=== PATIENT | female | born 1935 | race Caucasian/White ===

== ENCOUNTER 2018-12-17 12:11 | Inpatient (IN) | payer MEDICARE, OTHER ==
[~2018-12-17] VITALS: Ht 160 cm; Wt 63.0 kg
[~2018-12-17 12:11] MED LIST: AMLODIPINE BESYL5 MG PO; ARICEPT 5 MG TAB5 MG; ASPIR 8181 MG PO; ASPIRIN325 PO; BENICAR40 MG; BENICAR40 MG PO; CENTRUM SILVER1 EAC4 PO; D3 DOTS2000 UNIT PO; ENOXAPARIN40 MG/0.1 SUBQ; EVISTA PO; FISH OIL 500 M1 EAC1 PO; FOLIC ACID0.4 MG PO; HYDROCODONE-AP1 EAC6 PO; LATANOPROST 0.2.5 ML OP; MESTINON60 MG PO; METOPROLOL SUCC25 M1 PO; NORCO 5-325 TA1 EACH PO; PREDNISONE 10 M10 MG PO; PRESERVISION A1 EAC2 PO; PROLIA60 MG/1 ML SQ; SUPER B COMPLE150 MG PO; SYNTHROID75 MCG PO; TYLENOL325 MG PO
[2018-12-17 12:33] VITALS: BP 140/78
[2018-12-17] MEDS ORDERED: ARICEPT10 M1 PO (12:37)
[2018-12-17] MEDS ORDERED: PROLIA60 MG/1 ML SUBQ (12:37)
[2018-12-17] MEDS ORDERED: XALATAN2.5 M1 OPHTHALMIC (12:38)
[2018-12-17 14:10] LABS: URINE BILIRUBIN NEGATIVE (Negative); URINE BLOOD NEGATIVE (Negative); URINE CLARITY CLEAR; URINE COLOR YELLOW; URINE GLUCOSE-RANDOM NEGATIVE (Negative); URINE KETONES NEGATIVE (Negative); URINE LEUKOCYTES-REFLEX TRACE (Negative); URINE NITRITE-REFLEX NEGATIVE (Negative); URINE PROTEIN NEGATIVE (Negative); URINE SPECIFIC GRAVITY 1.025 (1.005-1.030); URINE UROBILINOGEN 0.2 E.U./dl (0.2-1.0)
[2018-12-17 14:14] LABS: ABSOLUTE BASOPHILS 0.1 thou/uL (0.0-0.2); ABSOLUTE EOSINOPHILS 0.2 thou/uL (0.0-0.7); ABSOLUTE LYMPHOCYTES 2.1 thou/uL (0.8-5.3); ABSOLUTE MONOCYTES 0.9 thou/uL (0.0-1.2); BASOPHILS 0.6 %; EOSINOPHILS 1.5 %; HEMATOCRIT 42.6 % (37.0-47.0); HEMOGLOBIN 14.2 gm/dL (12.0-15.0); LYMPHOCYTES 16.9 %; MCH 29.9 pg (26.0-34.0); MCHC 33.2 g/dL (28.0-37.0); MCV 90.2 fL (80.0-100.0); MONOCYTES 7.1 %; MPV 8.5 fl. (7.2-11.1); NUCLEATED RBCS 0 /100WBC; PLATELET COUNT* 294 thou/uL (150-400); POLYS 73.9 %; RBC 4.73 mil/uL (4.20-5.00); RDW-CV 15.3 % (10.5-14.5); WBC 12.2 thou/uL (4.0-11.0)
[2018-12-17 14:19] LABS: SQUAMOUS 0-3 Few /LPF (0-3); URINE WBC-REFLEX 0-5 Rare /HPF (0-5)
[2018-12-17 14:20] LABS: APTT 24.3 Seconds (25.0-31.3); CALCIUM 9.9 mg/dL (8.5-10.1); CREATININE 1.2 mg/dL (0.6-1.3); POTASSIUM 4.6 mmol/L (3.5-5.1); PROTIME 9.8 Seconds (9.20-11.50)
[2018-12-17 14:20] LABS: BACTERIA-REFLEX 1-9 Few /HPF (None Seen); CASTS None Seen /LPF (None Seen); CRYSTALS None Seen /LPF (None Seen); MUCUS None Seen strn/LPF (None Seen); URINE RBC 0-2 Rare /HPF (0-2)
[2018-12-17 14:24] LABS: ALBUMIN 4.1 g/dL (3.4-5.0); TOTAL BILIRUBIN 0.4 mg/dL (<0.1-1.0); TOTAL PROTEIN 7.7 g/dL (6.4-8.2)
--- NOTE | 2018-12-17 16:44 | EKG ---
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: TY : 1935 Requested By: Jake Rich Order Number: [id number] MD: Jaspreet Zavala Measurements Intervals [place] Rate: 79 P: 52 NH: 180 QRS: 12 QRSD: 90 T: 59 QT: 387 QTc: 444 Interpretive Statements Sinus rhythm Paired ventricular premature complexes Low voltage, precordial leads Abnormal R-wave progression, early transition Compared to ECG 06/07/2016 10:21:06 No significant changes Electronically Signed On 12-17-2018 16:44:34 CDT by Jaspreet Zavala [email or web address] <ELECTRONICALLY SIGNED> By: Jaspreet Zavala MD, FACC 12/17/18 1644 1242 1242 Jaspreet Zavala MD, [facility] /EPI
[2018-12-17 18:02] VITALS: BP 134/65
--- NOTE | 2018-12-17 18:15 | NUR ---
ER ADMIT TO 228 REPORT GIVEN PRIOR TO ARRIVAL PATIENT ORIENTED TO AND CALL LIGHT SON AT BEDSIDE PATIENT DENIES PAIN
[2018-12-17 18:20] VITALS: BP 147/42
[2018-12-17 20:00] VITALS: BP 136/46
[2018-12-17] MEDS ORDERED: BENICAR40 MG PO (20:04)
[2018-12-17] MEDS ORDERED: CLARITIN10 MG PO (20:05)
[2018-12-17] MEDS ORDERED: COMBIGAN EYE DR10 ML OPHTHALMIC (20:06)
[2018-12-18] VITALS: BP 104/30
[2018-12-18 04:00] VITALS: BP 98/55
--- NOTE | 2018-12-18 05:00 | NUR ---
PT ADMITTED TO FLOOR AT 1830, MONITOR PLACED, VS OBATAINED AND STABLE. MAINTAINING SATS ON RA. SON IS DPOA AND AT BEDSIDE. ALL ASSESSMENTS COMPLETED WITH PT AND SON D/T COGNITIVE DECLINE. NO C/O PAIN OR DISCOMFORT NOTED, ALL NEEDS HAVE BEEN MET AT THIS TIME, PT CURRENTLY IN BED WITH CALL LIGHT WITHIN REACH.
[2018-12-18 08:00] VITALS: BP 128/56
[2018-12-18 13:38] VITALS: BP 120/39
--- NOTE | 2018-12-18 14:23 | NUR ---
MET WITH PT AND BRIAN/TYREE TO DISCUSS HOME SITUATION/DC PLANNING. PT LIVES AT THE ASSISTED LIVING AT [facility]. PLAN IS FOR HER TO RETURN THERE AT OK. SHE HAS NOT BEEN TO SNF THERE IN PAST BUT TYREE IS OPEN TO THAT IF NEEDED. PT DOES HAVE THERAPY ORDERED. PT IS CONFUSED, THOUGHT SHE WAS STILL LIVING WITH HER SPOUSE WHO IS . PT USES WALKER, IS ABLE TO AMBULATE AND DRESS HERSELF. NEEDS ASSIST WITH SHOWER. DOES HAVE MEMORY ISSUES PER TYREE. COPY OF DPOA ON CHART. CALLED AND UPDATED LETHA/CONCEPCIÓN AND WILL FOLLOW
[2018-12-18 16:00] VITALS: BP 120/86; BP 144/54; BP 146/48
--- NOTE | 2018-12-18 16:46 | 2DMMODE ---
[place] [address] 2 D/M-MODE ECHOCARDIOGRAM Name: DESTINY COLBY Room: [address] ADM IN [facility]#: [id number] Admission: 12/17/18 Attend Phys: Cielo Keating Discharge: Date of : 35 Date of Service: 12/18/18 1646 Report #: [id number] THIS REPORT FOR: //name// APPROVED REPORT Study performed: 12/18/2018 14:46:32 EXAM: Comprehensive 2D, Doppler, and color-flow Echocardiogram Patient Location: In-Patient Room #: [facility] Status: routine BSA: 1.65 HR: 69 bpm BP: 120/39 mmHg Rhythm: NSR Other Information Study Quality: Good Indications Dyspnea Syncope 2D Dimensions IVSd: 10.62 (7-11mm) LVOT Diam: 21.65 (18-24mm) LVDd: 41.17 mm PWd: 10.40 (7-11mm) Ascending Ao: 30.29 (22-36mm) LVDs: 31.01 (25-40mm) Aortic Root: 28.88 mm Volumes Left Atrial Volume (Systole) LA ESV Index: 36.80 mL/m2 Aortic Valve AoV Peak Jasmeet.: 1.28 m/s AO Peak Gr.: 6.59 mmHg LVOT Max P.17 mmHg AO Mean Gr.: 3.45 mmHg LVOT Mean P.97 mmHg LVOT Max V: 1.02 m/s AO V2 VTI: 24.89 cm LVOT Mean V: 0.65 m/s HARPER (VTI): 3.22 cm2 LVOT V1 VTI: 21.76 cm Mitral Valve E/A Ratio: 1.20 MV Decel. Time: 169.90 [place] [address] 2 D/M-MODE ECHOCARDIOGRAM Name: DESTINY COLBY Room: [address] IN .R.#: [id number] Admission: 12/17/18 Attend Phys: Cielo Keating Discharge: Date of : 35 Date of Service: 12/18/18 1646 Report #: [id number] MV E Max Jasmeet.: 1.06 m/s MV PHT: 49.27 ms MVA (PHT): 4.47 cm2 TDI E/Lateral E': 8.83 E/Medial E': 13.25 Medial E' Jasmeet.: 0.08 m/s Lateral E' Jasmeet.: 0.12 m/s Pulmonary Valve PV Peak Jasmeet.: 0.76 m/s PV Peak Gr.: 2.33 mmHg Tricuspid Valve RAP Estimate: 5.00 mmHg TR Peak Gr.: 35.57 mmHg RVSP: 40.00 mmHg PA Pressure: 40.00 mmHg Left Ventricle The left ventricle is normal size. There is normal LV segmental wall motion. There is normal left ventricular wall thickness. Left ventricular systolic function is normal. LVEF is 55-60%. Transmitral Doppler flow pattern suggests impaired LV relaxation. Right Ventricle The right ventricle is normal size. The right ventricular systolic function is normal. Atria Left atrium is mildly dilated. Right atrium is mildly dilated. Aortic Valve Mild aortic valve sclerosis. No aortic regurgitation is present. There is no aortic valvular stenosis. Mitral Valve The mitral valve is normal in structure. Mild mitral regurgitation. No evidence of mitral valve stenosis. Tricuspid Valve The tricuspid valve is normal in structure. Mild tricuspid regurgitation. The RVSP is 45-50 mmHg. Pulmonic Valve The pulmonary valve is normal in structure. [place] [address] 2 D/M-MODE ECHOCARDIOGRAM Name: DESTINY COLBY Room: [address] IN [facility]#: [id number] Admission: 12/17/18 Attend Phys: Cielo Keating Discharge: Date of : 35 Date of Service: 12/18/18 1646 Report #: [id number] Great Vessels The aortic root is normal in size. IVC is normal in size and collapses >50% with inspiration. Pericardium There is no pericardial effusion. <Conclusion> The left ventricle is normal size. There is normal left ventricular wall thickness. Left ventricular systolic function is normal. LVEF is 55-60%. Transmitral Doppler flow pattern suggests impaired LV relaxation. Left atrium is mildly dilated. Right atrium is mildly dilated. Mild aortic valve sclerosis. There is no aortic valvular stenosis. Mild mitral regurgitation. Mild tricuspid regurgitation. The RVSP is 45-50 mmHg. <ELECTRONICALLY SIGNED> By: Merrick Escobedo MD, FACC 12/18/18 1646 45 45 Merrick Escobedo MD, FACC /INF
--- NOTE | 2018-12-18 17:49 | NUR ---
ASSUMED PT CARE REPORT RECEIVED FROM NURSE. PT IS AOX3 FORGETFUL. ON RA. VSS. IV FLUID INFUSING. IV ABX GIVEN. PT GOT MRI , EEG DONE PER NEURO. FALL PRECAUTION IN PLACE. PT REFUSED TO COOPORATE WITH FALL PRECAUTION RULES. KEEPS GETTING OUT OF BED. AND IS MORE CONFUSED. PT GOT AGITATED AROUND 1600. TRAZODONE GIVEN ONETIME PER DR ORDER.THEN ATIVAN ORDERED. WILL ADMINISTER. FALLP RECAUTION IN PLACE. CLOSE MONITORING IN PLACE. WILL CONTINUE TO MONITOR PT
--- NOTE | 2018-12-18 19:32 | NUR ---
PT HAD 2 TO 3 RUNS OF VTACH THIS AM . DR HANDLEY WAS NOTIFIED. CARDIAC SCRIPT PLACED IN CHART. US CAROTID, ECHO WAS ORDERED PER HOSPITALIST
[2018-12-18 20:00] VITALS: BP 123/48
[2018-12-19] VITALS (7 sets, daily range): BP systolic 119–156; BP diastolic 44–98
--- NOTE | 2018-12-19 05:49 | NUR ---
PT HAS INCREASED CONFUSION THIS HS SHIFT, IV REMOVED X2, IMPULSIVE BEHAVIOR GETTING UP OUT OF BED WITHOUT USING CALL LIGHT. FAMILY HAS REQUESTED THAT ATIVAN IS NO LONGER USED FOR THIS PT. CURRENTLY IN BED WITH BED ALARM ON, AND CALL LIGHT WITHIN REACH.
--- NOTE | 2018-12-19 14:04 | NUR ---
CONTINUE TO FOLLOW, MET WITH PT AND GRANDDTR, NOT READY FOR DC TODAY. IF PT ABLE TO DC OVER WEEKEND, WILL NEED TO CONTACT [facility] TO RETURN WELL FAMILY. [facility]/JOON [phone] SHE WILL BE ABLE TO ASSIST WITH PT'S RETURN. WILL NEED CHART COPY AND REPORT CALLED ALSO. JUANITO COLBY/SON AND DIL [facility] [phone] OR [phone]
--- NOTE | 2018-12-19 19:00 | NUR ---
RECEIVED REPORT FROM RHONDA MEDINA. ASSUMED CARE OF PT AROUND 0730. PT ALERT, ORIENTED TO SELF AND "[place]". PLEASANTLY CONFUSED. VSS. CHECKER DUMP GROUNDS IN PLACE TRACING SR WITH PVCS AND BIGEMENY THIS SHIFT. PT HAS DENIED PAIN TODAY. PT TOLERATING DIET. UP WITH SBA AND WALKER TO THE BATHROOM TO VOID FREQUENTLY. SMALL BM THIS AM, LOOSE. FAMILY AT BEDSIDE THIS EVENING - RECEIVED UPDATE FROM NEUROLOGIST DR CARBALLO. ORTHOSTATICS CHARTED. ECHO COMPLETED THIS SHIFT, HAVE NOT SEEN REPORT. PT WITH NO COMPLAINTS THIS SHIFT. PT CURRENTLY RESTING IN BED. CALL LIGHT IS WTIHIN REACH. HOURLY ROUNDING PERFROMED. FALL PRECAUTIONS IN PLACE.
[2018-12-20] VITALS (10 sets, daily range): BP systolic 130–188; BP diastolic 63–89
[2018-12-20 04:36] LABS: HEMATOCRIT 33.9 % (37.0-47.0); MCH 29.8 pg (26.0-34.0); MCHC 32.6 g/dL (28.0-37.0); MCV 91.4 fL (80.0-100.0); MPV 8.6 fl. (7.2-11.1); RBC 3.71 mil/uL (4.20-5.00); WBC 7.2 thou/uL (4.0-11.0)
[2018-12-20 04:53] LABS: HEMOGLOBIN 11.1 gm/dL (12.0-15.0)
[2018-12-20 05:02] LABS: ALBUMIN 2.8 g/dL (3.4-5.0); CALCIUM 8.2 mg/dL (8.5-10.1); CREATININE 0.9 mg/dL (0.6-1.3); POTASSIUM 4.2 mmol/L (3.5-5.1); TOTAL BILIRUBIN 0.2 mg/dL (<0.1-1.0); TOTAL PROTEIN 5.6 g/dL (6.4-8.2)
--- NOTE | 2018-12-20 06:56 | NUR ---
PT CARE ASSUMED AT 1930. SAT MAINTAINED IN RA. PT IS CONFUSED AND IMPULSIVE, GETS OFF THE BED ALARM, NEEDS REINFORCEMENT. DENIES PAIN AND SOB. CALL LIGHT WITHIN REACH AND BED IN LOW POSITION. HOURLY ROUNDING DONE FOR PT SAFETY.
--- NOTE | 2018-12-20 11:32 | NUR ---
ASSUMED CARE OF PATIENT THIS AM AT 0730. PATIENT IS ALERT AND ORIENTED X 4. SHE DENIES PAIN AND DISCOMFORT. PATIENT HAS BEEN UP TO THE BATHROOM FREQUENTLY TODAY. SHE HAS FORGOTTEN TO USE THE CALL LIGHT REQUESTED. BED ALARM IS ON. TELE SHOWS SR TO ST WITH PVCS, COUPLETS AND BIGEMINY. IV ANTIBIOTICS INFUSED. PATIENT ASSISTED WITH ADLS THROUGHOUT THE DAY. NO FALLS OR INJURY. WILL CONTINUE TO MONITOR.
[2018-12-21 00:47] VITALS: BP 159/82
--- NOTE | 2018-12-21 03:12 | NUR ---
PT CARE ASSUMED AT 1930. SAT MAINTAINED IN RA. PT IS IMPULSIVE AND CONFUSED. CALL LIGHT WITHIN REACH AND BED IN LOW POSITION. HOURLY ROUNDING DONE FOR PT SAFETY. REPORT GIVEN TO ADAM KAUR.
[2018-12-21 04:00] VITALS: BP 140/66; BP 157/89; BP 79/61
[2018-12-21 04:22] LABS: HEMATOCRIT 35.5 % (37.0-47.0); HEMOGLOBIN 11.8 gm/dL (12.0-15.0); MCH 30.2 pg (26.0-34.0); MCHC 33.3 g/dL (28.0-37.0); MCV 90.8 fL (80.0-100.0); MPV 8.5 fl. (7.2-11.1); RBC 3.91 mil/uL (4.20-5.00); RDW-CV 15.3 % (10.5-14.5); WBC 9.6 thou/uL (4.0-11.0)
[2018-12-21 04:42] LABS: CALCIUM 8.7 mg/dL (8.5-10.1); CREATININE 0.9 mg/dL (0.6-1.3); MAGNESIUM 1.7 mg/dL (1.8-2.4); POTASSIUM 4.1 mmol/L (3.5-5.1)
--- NOTE | 2018-12-21 07:51 | NUR ---
RECEIVED REPORT AND ASSUMED CARE AT 0130. VSS. CARDIAC MONITORING IN PLACE. PT UP WITH ASSIST, ON RA. HOURLY ROUNDING COMPLETED AND ALL NEEDS MET. NO ACUTE CHANGES
[2018-12-21 08:00] VITALS: BP 143/81
--- NOTE | 2018-12-21 11:12 | NUR ---
ASSUMED CARE OF PATIENT THIS AM AT 0730. PATIENT IS ALERT, CONFUSED ORIENTED TO PERSON. TELE SHOWS SR TO ST WITH PVCS. PVCS DECREASED FROM YESTERDAY. PATIENT DENIES PAIN AND SOA. CARDIOLOGY IN TO ROUND. THE DOCTOR SPOKE WITH FAMILY MEMBER REGARDING TX PLAN. IV ANTIBIOTICS CONTINUED. PATIENT ASSISTED UP TO THE CHAIR. URINARY FREQUENCY DECREASED TODAY. WILL CONTINUE TO MONITOR PATIENT SAFETY.
[2018-12-21 11:30] VITALS: BP 136/76
[2018-12-21 16:00] VITALS: BP 141/83
[2018-12-21 20:00] VITALS: BP 123/52
[2018-12-22] VITALS (7 sets, daily range): BP systolic 94–168; BP diastolic 47–90
--- NOTE | 2018-12-22 05:02 | NUR ---
ASSUMED CARE OF PT AFTER REPORT AT 1930. PT A&OX2. ONLY ORIENTED TO SELF & PLACE. FORGETFUL. IMPULSIVE. PT ON RA. PT TRACING SR/ST/PVC/BIGEMINY ON TELE. PT UPSTANDBY TO RESTROOM. PT DENIES ANY PAIN OR SOA. PT ABLE TO SLEEP WELL ON BED. CALL LIGHT WITHIN REACH.
--- NOTE | 2018-12-22 13:51 | NUR ---
CONTINUE TO FOLLOW, MET WITH PT AND THEN SPOKE WITH FIDELINA OVER THE PHONE. PER DR MARQUEZ, CONCERNED PT MAY NEED SNF. CALLED AND FAXED CLINICAL UPDATE TO PABLO/CONCEPCIÓN. MICHAEL/CONCEPCIÓN TO COME OVER THE EVAL PT RE: RETURN TO HER AN APT. FIDELINA STATED THAT SHE AND PT'S SON/ROMARIO PREFER THAT PT RETURN TO HER APT ESPECIALLY WITH HER DEMENTIA. PREFER SHE RETURN TO WHERE SHE IS FAMILIAR. ANTICIPATED DC TOMORROW. WILL FOLLOW AND AWAIT Deo RECOMMENDATION AND F/U WITH
--- NOTE | 2018-12-22 18:38 | NUR ---
PT IS A&Ox SELF. VITALS STABLE. SR TO ST ON MONITOR. ON RA. UP STAND BY WITH WALKER. PT IS IMPULSIVE AND DOES NOT FOLLOW FALL PRECAUTIONS. FALL EDUCATION AND CALL LIGHT EDUCATION GIVEN TO PT MULTIPLE TIMES. BED AND CHAIR ALARMS ON. PT HAS BEEN KNOWN TO FIND OUT HOW TO TURN ALARMS OFF HERSELF BEFORE GETTING UP. POSSBLE DC TOMORROW BACK TO [facility]. FALL PRECAUTIONS IN PLACE. CALL LIGHT WITHIN REACH. WILL CONTINUE TO MONITOR.
[2018-12-23] VITALS: BP 149/56
[2018-12-23 04:00] VITALS: BP 98/68
--- NOTE | 2018-12-23 06:55 | NUR ---
PT SLEPT MOST OF SHIFT. ASSESSMENT DOCUMENTED. MEDS GIVEN PER E-APR. IV PATENT. NO REPORTS OF PAIN. FALL PRECAUTIONS IN PLACE. WILL CONTINUE WITH PLAN OF CARE.
[2018-12-23 08:00] VITALS: BP 157/63
[2018-12-23] MEDS ORDERED: ADULT LOW DOSE81 MG PO (11:35)
[2018-12-23] MEDS ORDERED: CIPRO500 M1 PO (11:35)
[2018-12-23] MEDS ORDERED: NAMENDA 5 MG TAB5 M1 PO (11:36)
--- NOTE | 2018-12-23 11:36 | NUR ---
ORDERS FOR PT TO RETURN TO HER PRISON APT AT [facility]. CALLED CONCE[facility]N/JOON, THEY WILL ACCEPT BACK TODAY TO AN. CHART COPIED. ORDERS FAXED TO [facility]. CALL TO BRIAN/TYREE, SHE WILL PROVIDE TRANSPORT AROUND 2PM FOR PT. RN HAS NUMBER TO CALL REPORT. PT AWARE
[2018-12-23 11:59] VITALS: BP 116/64
[2018-12-23 13:15] VITALS: BP 116/64
[2018-12-23] MEDS ORDERED: BENICAR40 MG PO (13:15)
--- NOTE | 2018-12-23 13:24 | NUR ---
RECEIVED REPORT FROM AURY MEDINA. ASSUMED CARE OF PT AROUND 0730. PT ALERT, ORIENTED TO SELF. VSS. FILLER SHAKER IN PLACE TRACING SR WITH FREQUENT PVC'S. AM ASSESSMENT AND VITALS COMPLETED CHARTED. MEDS PER EMAR. PT UP WITH SBA AND WALKER TO THE BATHROOM TO VOID. PT IMPULSIVE AT TIMES AND FORGETS TO USE CALL LIGHT. FALL PRECAUTIONS IN PLACE. BED ALARM ON. PT HAS DENIED PAIN THIS SHIFT. PT TO GO BACK TO [facility] THIS AFTERNOON. PT CURRENTLY RESTING IN BED. CALL LIGHT IS WITHIN REACH. HOURLY ROUNDING PERFORMED. REPORT GIVEN TO DIOGENES MEDINA.
[2018-12-23 13:25] VITALS: BP 116/64
--- NOTE | 2018-12-23 14:39 | NUR ---
GAVE DISCHARGE PAPERWORK TO [facility], NO COMMENTS, QUESTIONS, OR CONCERNS NOTED. WHEELED DOWN TO [facility] CAR BY VOLUNTEER AT 1440. SCRIPTS GIVEN TO DAUGHTER AND A COPY OF DISCHARGE PAPERWORK ALSO GIVEN. IV AND HEART MONITOR REMOVED. REPORT CALLED TO JOON AT [facility].
--- NOTE | 2018-12-26 14:24 | CON ---
[address] [address] CONSULTATION Name: PUNEET COLBYN Emily Room: [address] IN M.R.#: [id number] Admission: 12/17/18 Attend Phys: Adriana Mcmahan Discharge: 12/23/18 Date of : 35 Report #: [id number] THIS REPORT FOR: //name// CC: Ashley Keating DATE OF SERVICE: 12/18/2018 HISTORY OF PRESENT ILLNESS: This is an 83-year-old female patient whom I have seen in the past. The patient has pretty significant memory deficits and she is not able to provide any good history. I talked to the patient's son and he indicated that this patient's memory has deteriorated in the last 30 days or so. The deterioration was spontaneous and without any trauma or any infection. She lives in [place]. Her myasthenia is reasonably under control. REVIEW OF SYSTEMS: Indicate that this patient has a history of dementia. She has a history of myasthenia gravis. She had an episode of near syncope. Her heart is showing some irregularity as I understand. When I saw her the first time she was pretty significantly weak, but I do not think she is that weak now. She is on the medication for dementia as well as for myasthenia gravis. She also has a history of tonsillectomy, hysterectomy, appendectomy, bladder repair, hypertension, hypothyroidism and knee replacement. History is poor, but 14-point review of systems indicates no additional eye, ENT, cardiac, respiratory, GI, , musculoskeletal, constitutional, dermatological, hematological, psychiatric, throat, allergic symptom associated with present symptomatology. PAST MEDICAL HISTORY: Positive for myasthenia gravis and dementia. FAMILY HISTORY: Negative for any early age stroke. SOCIAL HISTORY: She does not drink or smoke. PHYSICAL EXAMINATION: Indicate she is alert. She does not know what month it is. She does not know what day it is. She does not know what hospital she is in, and why she came in. Her speech looks intact. Cranial nerve examination does indicate some ptosis. Otherwise, it was unremarkable. Strength, sensation, reflexes and tones were symmetrical. Pulses appeared to be palpable. She has no edema, cyanosis or jaundice. Heart does appear to be somewhat irregular. No respiratory difficulty or rhonchi was noticed. She is moderately built individual whose hearing and vision looks adequate. No facial deformity was noticed. No thyroid mass was detected. The blood pressure is 128/56, respirations 16, pulse is 74 and temperature is 97.6. LABORATORY DATA: Indicated white count of 12.2 and normal sodium. Urine [place] [address] CONSULTATION Name: PUNEET COLBYN Emily Room: [address] IN M.R.#: [id number] Admission: 12/17/18 Attend Phys: Adriana Mcmahan Discharge: 12/23/18 Date of : 35 Report #: [id number] IMPRESSION: 1. Advanced dementia. 2. Myasthenia gravis, which appeared to be stable. 3. Syncope, which need further workup, both cardiac as well as neurological. RECOMMENDATIONS: 1. From neurological perspective, I will suggest getting an MRI and an EEG done. 2. Systemic especially cardiac workup to look for any cause for syncope. 3. I repeated the TSH because one time it was abnormal. 4. I do not believe we need to change much for myasthenia gravis in this patient. My partners will be following up this patient from tomorrow. <ELECTRONICALLY SIGNED> By: Alistair Davidson MD 12/26/18 1424 0922 [id number] Davidson MD /nt
--- NOTE | 2018-12-26 14:24 | EEG ---
[address] [address] EEG STUDY REPORT Name: DESTINY COLBY Room: [address] IN M.R.#: [id number] Admission: 12/17/18 Attend Phys: Adriana Mcmahan Discharge: 12/23/18 Date of : 35 Report #: [id number] THIS REPORT FOR: //name// CC: Ashley Keating DATE OF SERVICE: 12/18/2018 This patient is being evaluated for an episode of syncope. EEG was done by placing the electrode by standard 10/20 system of electrode placement. Both referential and sequential montages were used for recording. Background activity in this patient's EEG is about 8-9 Hz and 30 microvolt. The patient became drowsy and that is associated with bilateral slowing. Photic stimulation was unremarkable. Throughout the record, no active epileptiform activity was noticed. IMPRESSION: The EEG is intermixed with moderate amount of slowing, which is a nonspecific finding, which can occur with dementia, encephalopathy, effect of psychotropic medication, etc. Clinical correlation is recommended. <ELECTRONICALLY SIGNED> By: Alistair Davidson MD 12/26/18 1424 1550 [id number] Davidson MD /nt
--- NOTE | 2018-12-27 11:55 | CON ---
[address] [address] CONSULTATION Name: DESTINY COLBY Room: [address] IN .R.#: [id number] Admission: 12/17/18 Attend Phys: Adriana Mcmahan Discharge: 12/23/18 Date of : 35 Report #: [id number] THIS REPORT FOR: //name// CC: Ashley Rasheeda Keating DATE OF SERVICE: 12/21/2018 CARDIOLOGY CONSULTATION HISTORY OF PRESENT ILLNESS: The patient is a pleasant 83-year-old female who lives at [facility]. She was admitted with urinary tract infection, hypotension and alteration in consciousness. Since admission, she has been noted to have frequent PVCs including frequent episodes of bigeminy and one 4-beat run of nonsustained ventricular tachycardia. She also had a markedly elevated NT-BNP of 5567 on 12/20/2018. The patient denies palpitations and there has been no recurrent lightheadedness since admission. She denies chest discomfort. The patient has no history of prior myocardial infarction. She is compliant with cardiac medicines including olmesartan and fish oil. She is on a number of noncardiac medications. PAST MEDICAL HISTORY: Remarkable for prior cigarette smoking and antecedent hypertension. Chronic medical problems include myasthenia gravis, dementia, prior knee replacements. FAMILY HISTORY: Negative for premature coronary artery disease. SOCIAL HISTORY: Reveals the patient to be neither a smoker nor drinker. She lives at [facility] at this point. REVIEW OF SYSTEMS: Remarkable for the following: CENTRAL NERVOUS SYSTEM: She notes chronic weakness. CARDIOVASCULAR: She had an episode of passing out prior to admission was noted to be hypotensive at [facility] associated with her acute urinary tract infection. ENDOCRINE: There is a history of thyroid problems. ALLERGIC AND IMMUNOLOGIC: She notes SEASONAL ALLERGIES. PHYSICAL EXAMINATION: [place] [address] CONSULTATION Name: DESTINY COLBY Room: [address]#: [id number] Admission: 12/17/18 Attend Phys: Adriana Mcmahan Discharge: 12/23/18 Date of : 35 Report #: [id number] GENERAL: Reveals a frail-appearing elderly female in no acute distress. VITAL SIGNS: Blood pressure is 140/65, pulse rate is 84, respirations are 18 per minute. NECK: Jugular venous pressure is normal. CHEST: Clear. CARDIAC: Reveals normal first and second heart sounds without murmurs or gallops. ABDOMEN: Soft. EXTREMITIES: Without edema. Rhythm strips were reviewed and they reveal frequent PVCs with occasional couplets, periods of bigeminy and one 4-beat run of nonsustained ventricular tachycardia. IMPRESSION: 1. Frequent ventricular ectopy with short run of nonsustained ventricular tachycardia, which remains asymptomatic. 2. Increased NT-BNP. 3. History of hypertension. 4. Episode of loss of consciousness associated with hypotension and acute urinary tract infection. RECOMMENDATIONS: 1. Holter monitoring for 48 hours. 2. I would recommend echocardiogram regarding structural heart disease. 3. Would not recommend antiarrhythmic pharmacotherapy on the basis of currently available data. This has been discussed with the patient and family. <ELECTRONICALLY SIGNED> By: Jaspreet Zavala MD, FACC 12/27/18 1155 1043 [id number] Zavala MD, FACC /nt
== END 2018-12-23 14:40 | DRG 312 ==
LOC: M.ERS 12:11 → M.2W 16:03 → M.TBA-ER 16:03 → M.2W 18:08
PROVIDERS: Family Medicine; ADMIT Internal Medicine
DX: I95.1 Orthostatic hypotension (principal); N39.0 Urinary tract infection, site not specified; I47.2 Ventricular tachycardia; G93.40 Encephalopathy, unspecified; I10 Essential (primary) hypertension; F03.90 Unspecified dementia, unspecified severity, without behavioral disturbance, psychotic disturbance, mood disturbance, and anxiety; E03.9 Hypothyroidism, unspecified; M81.0 Age-related osteoporosis without current pathological fracture; Z96.653 Presence of artificial knee joint, bilateral; G70.00 Myasthenia gravis without (acute) exacerbation; I34.0 Nonrheumatic mitral (valve) insufficiency; I49.3 Ventricular premature depolarization; E78.5 Hyperlipidemia, unspecified; Z79.82 Long term (current) use of aspirin; Z79.899 Other long term (current) drug therapy; Z90.710 Acquired absence of both cervix and uterus; Z90.49 Acquired absence of other specified parts of digestive tract; Z87.891 Personal history of nicotine dependence; Z82.49 Family history of ischemic heart disease and other diseases of the circulatory system

== ENCOUNTER 2019-08-29 17:19 | Inpatient (IN) | payer MEDICARE, OTHER ==
[~2019-08-29] VITALS: Ht 170.2 cm; Wt 61.2 kg
[~2019-08-29 17:19] MED LIST changes: +ADULT LOW DOSE81 MG PO; +ARICEPT10 M1 PO; +CIPRO500 M1 PO; +CLARITIN10 MG PO; +COMBIGAN EYE DR10 ML OPHTHALMIC; +NAMENDA 5 MG TAB5 M1 PO; +PROLIA60 MG/1 ML SUBQ; +XALATAN2.5 M1 OPHTHALMIC
[2019-08-29 17:21] VITALS: BP 139/89
[2019-08-29 18:05] LABS: HEMATOCRIT 38.9 % (37.0-47.0); HEMOGLOBIN 12.9 gm/dL (12.0-15.0); MCH 30.1 pg (26.0-34.0); MCHC 33.3 g/dL (28.0-37.0); MCV 90.4 fL (80.0-100.0); MPV 8.4 fl. (7.2-11.1); NUCLEATED RBCS 0 /100WBC; PLATELET COUNT* 263 thou/uL (150-400); RDW-CV 15.2 % (10.5-14.5)
[2019-08-29 18:15] LABS: CALCIUM 9.8 mg/dL (8.5-10.1); CREATININE 1.2 mg/dL (0.6-1.3); POTASSIUM 3.8 mmol/L (3.5-5.1)
[2019-08-29 18:17] LABS: APTT 22.9 Seconds (25.0-31.3); PROTIME 10.2 Seconds (9.20-11.50)
[2019-08-29 18:26] LABS: ALBUMIN 3.7 g/dL (3.4-5.0); TOTAL BILIRUBIN 0.5 mg/dL (<0.1-1.0); TOTAL PROTEIN 7.1 g/dL (6.4-8.2)
[2019-08-29 18:37] LABS: ABSOLUTE LYMPHOCYTES 0.4 thou/uL (0.8-5.3); ABSOLUTE MONOCYTES 0.4 thou/uL (0.0-1.2); ABSOLUTE NEUTROPHILS 12.2 thou/uL (1.6-8.1); ANISOCYTOSIS Occasional; PLATELET ESTIMATE ADEQUATE
[2019-08-29 19:20] LABS: URINE BILIRUBIN NEGATIVE (Negative); URINE BLOOD NEGATIVE (Negative); URINE CLARITY SL CLOUDY; URINE COLOR YELLOW; URINE GLUCOSE-RANDOM NEGATIVE (Negative); URINE KETONES NEGATIVE (Negative); URINE LEUKOCYTES-REFLEX 1+ (Negative); URINE NITRITE-REFLEX NEGATIVE (Negative); URINE PROTEIN TRACE (Negative); URINE UROBILINOGEN 0.2 E.U./dl (0.2-1.0)
[2019-08-29 19:27] LABS: BACTERIA-REFLEX >30 Many /HPF (None Seen); CRYSTALS None Seen /LPF (None Seen); HYALINE CASTS 0-3 Few /LPF (None Seen); MUCUS 4-6 Moderate strn/LPF (None Seen); SQUAMOUS 4-10 Moderate /LPF (0-3); URINE RBC 0-2 Rare /HPF (0-2); URINE WBC-REFLEX 6-15 Few /HPF (0-5)
[2019-08-29 19:42] VITALS: BP 136/74
[2019-08-29 20:30] VITALS: BP 141/71
[2019-08-29 23:58] VITALS: BP 138/50
[2019-08-30 04:00] VITALS: BP 136/71
--- NOTE | 2019-08-30 06:01 | NUR ---
PT RECIEVED FROM ED IN ROOM 214. PT IS CONNFUSED, AGITATED. TRYING TO PULL THE IV OUT, GETTING OFF THE BED ALARM FREQUENTLY. PHYSICIAN INFORMED AND MEDICATION GIVEN PER EMAR. DENIES PAIN AND SOB. CALL LIGHT WITHIN REACH AND BED IN LOW POSITION. HOURLY ROUNDING DONE FOR PT SAFETY.
[2019-08-30 07:53] VITALS: BP 116/62
[2019-08-30 13:08] LABS: URINE BILIRUBIN NEGATIVE (Negative); URINE BLOOD NEGATIVE (Negative); URINE CLARITY CLEAR; URINE COLOR YELLOW; URINE GLUCOSE-RANDOM NEGATIVE (Negative); URINE KETONES NEGATIVE (Negative); URINE LEUKOCYTES-REFLEX NEGATIVE (Negative); URINE NITRITE-REFLEX NEGATIVE (Negative); URINE PROTEIN TRACE (Negative); URINE SPECIFIC GRAVITY 1.015 (1.005-1.030); URINE UROBILINOGEN 0.2 E.U./dl (0.2-1.0)
[2019-08-30 15:07] VITALS: BP 119/43
[2019-08-30 15:09] VITALS: BP 128/49
[2019-08-30 15:11] VITALS: BP 135/75
--- NOTE | 2019-08-30 17:49 | NUR ---
PT ST ON MONITOR. DR ROBERTS NOTIFIED. EKG OBTAINED PER ORDER. SEE CHART. PT VERY CONFUSED AND FORGETFUL. REMOVES FOUNDER CEO & PRESIDENT FREQUENTLY. NEW IV ACCESS STARTED AFTER PT REMOVED PREVIOUS ONE. REFUSED 1700 PO MEDICATION DISPITE MANY ATTEMPTS TO GET HER TO DO SO. FALL PRECAUTIONS IN PLACE INCLUDING BED ALARM. SLOW TO PROGRESS TOWARDS GOALS.
--- NOTE | 2019-08-30 18:37 | NUR ---
PT INCONT OF URINE AT TIMES.
[2019-08-30 20:20] VITALS: BP 128/59
[2019-08-31] VITALS: BP 154/54
[2019-08-31 04:00] VITALS: BP 156/78
--- NOTE | 2019-08-31 07:06 | NUR ---
PT CARE ASSUMED AT 1930. SAT MAINTAINED IN RA. ALERT AND ORIENTED X 2. DENIES SOB. PT IS CONFUSED. INCONTINENT OF BLADDER. CALL LIGHT WITHIN REACH AND BED IN LOW POSITION. HOURLY ROUNDING DONE FOR PT SAFETY.
[2019-08-31 07:40] VITALS: BP 146/71
[2019-08-31 11:19] LABS: HEMATOCRIT 33.5 % (37.0-47.0); HEMOGLOBIN 11.1 gm/dL (12.0-15.0); MCH 30.2 pg (26.0-34.0); MCV 91.4 fL (80.0-100.0); MPV 8.5 fl. (7.2-11.1); RBC 3.67 mil/uL (4.20-5.00); RDW-CV 15.9 % (10.5-14.5); WBC 12.4 thou/uL (4.0-11.0)
[2019-08-31 11:32] LABS: ALBUMIN 2.5 g/dL (3.4-5.0); CALCIUM 8.3 mg/dL (8.5-10.1); MAGNESIUM 2.5 mg/dL (1.8-2.4); PHOSPHORUS* 2.7 mg/dL (2.5-4.9); POTASSIUM 3.6 mmol/L (3.5-5.1)
[2019-08-31 11:53] VITALS: BP 123/46
--- NOTE | 2019-08-31 14:52 | 2DMMODE ---
[place] [address] 2 D/M-MODE ECHOCARDIOGRAM Name: DESTINY COLBY Room: [address] IN [facility]#: [id number] Admission: 08/31/19 Attend Phys: Francisco Dockery Discharge: Date of : 35 Date of Service: 08/31/19 1451 Report #: [id number] THIS REPORT FOR: cc: Ashlye Vanessa MD, Katrina MD Holkins, John M. MD [facility] ~ APPROVED REPORT Study performed: 08/31/2019 11:15:21 EXAM: Comprehensive 2D, Doppler, and color-flow Echocardiogram Patient Location: In-Patient Room #: [facility] Status: routine BSA: 1.98 HR: 97 bpm BP: 156/78 mmHg Rhythm: NSR Other Information Study Quality: Good Indications Dyspnea 2D Dimensions IVSd: 8.73 (7-11mm) LVOT Diam: 20.68 (18-24mm) LVDd: 37.64 mm PWd: 8.26 (7-11mm) Ascending Ao: 30.67 (22-36mm) LVDs: 28.90 (25-40mm) Aortic Root: 28.79 mm Volumes Left Atrial Volume (Systole) LA ESV Index: 22.40 mL/m2 Aortic Valve AoV Peak Jasmeet.: 1.40 m/s AO Peak Gr.: 7.80 mmHg LVOT Max P.37 mmHg AO Mean Gr.: 4.59 mmHg LVOT Mean P.28 mmHg LVOT Max V: 0.77 m/s AO V2 VTI: 22.89 cm LVOT Mean V: 0.53 m/s HARPER (VTI): 1.89 cm2 LVOT V1 VTI: 12.91 [place] [address] 2 D/M-MODE ECHOCARDIOGRAM Name: DESTINY COLBY Room: [address] IN ..#: [id number] Admission: 08/31/19 Attend Phys: Francisco Dockery Discharge: Date of : 35 Date of Service: 08/31/19 1451 Report #: [id number] Mitral Valve E/A Ratio: 0.63 MV Decel. Time: 190.62 ms MV E Max Jasmeet.: 0.54 m/s MV PHT: 55.28 ms MVA (PHT): 3.98 cm2 TDI E/Lateral E': 6.75 E/Medial E': 7.71 Medial E' Jasmeet.: 0.07 m/s Lateral E' Jasmeet.: 0.08 m/s Tricuspid Valve RAP Estimate: 5.00 mmHg TR Peak Gr.: 17.88 mmHg RVSP: 23.00 mmHg PA Pressure: 23.00 mmHg Left Ventricle The left ventricle is normal size. There is normal LV segmental wall motion. There is normal left ventricular wall thickness. Left ventricular systolic function is normal. The left ventricular ejection fraction is within the normal range. LVEF is 55%. Grade I - abnormal relaxation pattern. Right Ventricle The right ventricle is normal size. The right ventricular systolic function is normal. Atria The left atrium size is normal. The right atrium size is normal. Aortic Valve Mild aortic valve sclerosis. No aortic regurgitation is present. There is no aortic valvular stenosis. Mitral Valve The mitral valve is normal in structure. Trace mitral regurgitation. No evidence of mitral valve stenosis. Tricuspid Valve The tricuspid valve is normal in structure. Mild tricuspid regurgitation. Pulmonic Valve The pulmonary valve is normal [place] [address] 2 D/M-MODE ECHOCARDIOGRAM Name: SPENCER COLBYLYN Emily Room: [address]#: [id number] Admission: 08/31/19 Attend Phys: Francisco Dockery Discharge: Date of : 35 Date of Service: 08/31/19 1451 Report #: [id number] regurgitation. Great Vessels The aortic root is normal in size. IVC is normal in size and collapses >50% with inspiration. Pericardium There is no pericardial effusion. <Conclusion> The left ventricle is normal size. There is normal left ventricular wall thickness. Left ventricular systolic function is normal. The left ventricular ejection fraction is within the normal range. LVEF is 55%. Grade I - abnormal relaxation pattern. The right ventricle is normal size. The left atrium size is normal. Mild aortic valve sclerosis. No aortic regurgitation is present. There is no aortic valvular stenosis. The mitral valve is normal in structure. The tricuspid valve is normal in structure. Mild tricuspid regurgitation. IVC is normal in size and collapses >50% with inspiration. There is no pericardial effusion. There is normal LV segmental wall motion. <ELECTRONICALLY SIGNED> By: Jaspreet Zavala MD, FACC 08/31/19 1451 1451 1451 Jaspreet Zavala MD, FACC /INF
--- NOTE | 2019-08-31 15:26 | NUR ---
Pt carries a dementia dx, was able to answer most of CM's questions, CM spoke with Pt's son to clarify Pt's responses. Pt resides at [facility]. Pt normally uses a walker for mobility. Per son, since dianna, residents at [facility] have had to stay in their rooms, Pt was normally able to ambulate to meals and around the unit, but since [facility], she has not been getting the normal amount of exercise that she use to get, son contributes this to Pt's recent falls. Neuro consult pending. Pt will need skilled vs. inpt rehab at or. Following.
--- NOTE | 2019-08-31 15:34 | EKG ---
[place] [address] ELECTROCARDIOGRAM REPORT Name: SPENCER COLBYLYN Emily Room: [address] ADM IN .R.#: [id number] Admission: 08/31/19 Attend Phys: Francisco Dockery Discharge: Date of : 35 Date of Service: 08/29/19 1723 Report #: [id number] THIS REPORT FOR: //name// [facility] ED Test Date: 2019-08-29 Test Time: 17:23:34 Pat Name: DESTINY COLBY Department: Room: [facility] Gender: F Monitoring Specialist: : 1935 Requested By: Alphonso Shane Order Number: [id number] MD: Jaspreet Zavala Measurements Intervals [place] Rate: 118 P: 45 WI: 172 QRS: -17 QRSD: 89 T: 48 QT: 351 QTc: 492 Interpretive Statements Sinus tachycardia Ventricular tachycardia, unsustained Probable left atrial enlargement Probable left ventricular hypertrophy Compared to ECG 12/17/2018 12:42:45 Ventricular tachycardia now present Electronically Signed On 08-31-2019 15:34:05 CDT by Jaspreet Zavala [email or web address] <ELECTRONICALLY SIGNED> By: Jaspreet Zavala MD, [facility] 08/31/19 1534 1723 1723 Jaspreet Zavala MD, [facility] /EPI
--- NOTE | 2019-08-31 15:39 | EKG ---
[place] [address] ELECTROCARDIOGRAM REPORT Name: DESTINY COLBY Room: [address] ADM IN M.R.#: [id number] Admission: 08/31/19 Attend Phys: Francisco Dockery Discharge: Date of : 35 Date of Service: 08/30/19 1704 Report #: [id number] THIS REPORT FOR: //name// [facility] Test Date: 2019-08-30 Test Time: 17:04:03 Pat Name: DESTINY COLBY Department: Room: [address] Gender: F Anesthetist: SARAH : 1935 Requested By: French Meyer Order Number: [id number] Martín MD: Jaspreet Zavala Measurements Intervals [place] Rate: 119 P: 42 MA: 154 QRS: -19 QRSD: 87 T: 36 QT: 327 QTc: 461 Interpretive Statements Sinus tachycardia Ventricular bigeminy LVH by voltage Compared to ECG 08/29/2019 17:23:34 Ventricular premature complex(es) now present Ventricular tachycardia no longer present Electronically Signed On 08-31-2019 15:39:06 CDT by Jaspreet Zavala [email or web address] <ELECTRONICALLY SIGNED> By: Jaspreet Zavala MD, [facility] 08/31/19 1539 1704 1704 Jaspreet Zavala MD, FAC /EPI
[2019-08-31 16:02] VITALS: BP 133/83
--- NOTE | 2019-08-31 17:04 | NUR ---
PATIENT UP WITH MAX ASSISTANCE OF 2, GAIT BELT AND WALKER. PATIENT UP TO BSC, VOIDING WITHOUT DIFFICULTY AND BM X 2. BARRIER CREAM APPLIED TO COCCYX. PATIENT SAT UP IN CHAIR APPROX 4 HOURS. IVF AND SCHED INFUSING ORDERED. HORSE RIDER WITH IRREGULAR RHYTHM, PATIENT DID HAVE EPISODES OF BIJEMINY AND PVCS', DR. ROBERTS AWARE. IV METOPROLOL CHANGED TO PO PER DR. ROBERTS. PATIENT ALERT AND ORIENTED MOST OF THE SHIFT, FORGETFUL AT TIMES. NEURO CONSULTED FOR HX MYASTENIA GRAVIS, DR. AYALA SAW PATIENT THIS EVENING AND MRI SPINE ORDERED.
[2019-08-31 20:20] VITALS: BP 130/72
[2019-09-01] VITALS: BP 120/63
[2019-09-01 04:00] VITALS: BP 156/59
--- NOTE | 2019-09-01 05:41 | NUR ---
PT CARE ASSUMED AT 1930. SAT MAINTAINED IN RA. ALERT AND ORIENTED X4. DENIES SOB. PT RETAINING URINE, UNABLE TO VOID, BLADDER SCAN SHOWED 579 ML, CATHETER INSERTED. WALKER IN PLACE AND DRAINING. CALL LIGHT WITHIN REACH AND BED IN LOW POSITION. HOURLY ROUNDING DONE FOR PT SAFETY.
[2019-09-01 07:40] VITALS: BP 162/88
[2019-09-01 12:03] VITALS: BP 117/64
--- NOTE | 2019-09-01 16:24 | NUR ---
PATIENT HAD MRI OF SPINE THIS SHIFT PER NEUROLOGY ORDERS. IVF AND SCHED ABX INFUSED ORDERED. PATIENT UP WITH THERAPY USING GAIT BELT AND WALKER. WALKER DRAINING YELLOW URINE. PATIENT MORE CONFUSED THAN YESTERDAY. ADDING MACHINE OPERATOR TRACING ST/COUPLETS.
[2019-09-01 16:28] VITALS: BP 131/69
[2019-09-01 20:10] VITALS: BP 146/60
[2019-09-02] VITALS: BP 152/54
[2019-09-02 04:00] VITALS: BP 143/78
--- NOTE | 2019-09-02 05:45 | NUR ---
PT CARE ASSUMED AT 1930. SAT MAINTAINED IN RA. PT IS CONFUSED. INCONTINENT OF BOWEL. C/O PAIN, MEDICATION GIVEN PER EMAR. CALL LIGHT WITHIN REACH AND BED IN LOW POSITION. HOURLY ROUNDING DONE FOR PT SAFETY.
[2019-09-02 08:00] VITALS: BP 152/72
[2019-09-02 11:57] VITALS: BP 146/86
[2019-09-02 17:17] VITALS: BP 140/71
[2019-09-02 19:50] VITALS: BP 150/97
[2019-09-03] VITALS: BP 142/79
[2019-09-03 04:00] VITALS: BP 152/75
[2019-09-03 04:57] LABS: CALCIUM 8.1 mg/dL (8.5-10.1); POTASSIUM 3.7 mmol/L (3.5-5.1)
--- NOTE | 2019-09-03 05:48 | NUR ---
PT CARE ASSUMED AT 1930. SAT MAINTAINED IN RA. PT IS CONFUSED. IMPULSIVE AT TIMES, EDUCATION GIVEN NEEDS REINFORCEMENT. INCONTINENT OF BOWEL AND BLADDER. CALL LIGHT WITHIN REACH AND BED IN LOW POSITION. HOURLY ROUNDING DONE FOR PT SAFETY.
[2019-09-03 08:00] VITALS: BP 143/78
[2019-09-03] MEDS ORDERED: PREDNISONE 20 M20 MG PO (08:14)
[2019-09-03] MEDS ORDERED: METOPROLOL SUCC25 M1 PO (08:15)
[2019-09-03 11:45] VITALS: BP 135/87
--- NOTE | 2019-09-03 13:54 | NUR ---
CM spoke with admissions at [facility], if Pt does dc to acute rehab, once complete, Pt will return to her AN and therapies will continue to see her billed under her Part B, no HH is allowed in the building at this time. CM updated rn cardiac rehab, waiting for therapies to see today to determine if they will be able to accept Pt. Per [facility] admissions, they can accept Pt for skilled if she does not qualify for acute rehab.
--- NOTE | 2019-09-03 15:11 | NUR ---
Pt discharging to [facility] acute rehab today. Faxed dc orders. Updated Pt's DIL. Pt to admit to room 320
[2019-09-03 16:08] VITALS: BP 135/87
[2019-09-03 16:19] VITALS: BP 129/49
--- NOTE | 2019-09-03 17:53 | CON ---
[facility] [address] [place] [address] CONSULTATION Name: DESTINY COLBY Room: [address] IN M.R.#: [id number] Admission: 08/31/19 Attend Phys: Piter Verduzco Discharge: Date of : 35 Report #: [id number] THIS REPORT FOR: //name// cc: Ashley Vanessa MD, Katrina MD ~ THIS REPORT FOR: //name// CC: Ashley Dockery DATE OF SERVICE: 08/31/2019 HISTORY OF PRESENT ILLNESS: This is an 83-year-old female patient who is unable to provide much history. I called the patient's son. I talked to him. I talked to the nurses looking after this patient. I reviewed the patient's records. The patient has been known to me from the prior admissions. This patient has a diagnosis of myasthenia gravis. Antibodies have been positive. At one time, she had profound symptoms, but then she got controlled, but she also has dementia. She continued to develop bradycardia with a cholinergic medications. It looks like her heart rate still goes low, but most of the time, stays in acceptable range. She was found on the floor, the cause is not clear. REVIEW OF SYSTEMS: Positive for myasthenia gravis. It is a longstanding problem. She had falls recently. Her legs appeared to be weak. She was lying on the floor. She has a prior history of tonsillectomy, hysterectomy, appendectomy, bladder repair, hypertension, hypothyroidism, osteoporosis, hay fever, knee replacement on both sides, antibody positive myasthenia gravis, and dementia. I have seen her in the office also. This was a relevant 14-point review of system. PAST MEDICAL HISTORY: Positive for myasthenia gravis and dementia. FAMILY HISTORY: Noncontributory. SOCIAL HISTORY: She lives in a senior living. PHYSICAL EXAMINATION: Indicates she is alert. She does not know what month it is. She knew what hospital she is in. Her speech looks intact. Memory looks very poor, but her baseline. Cranial nerve examination 2-12 looks unremarkable. She is pretty profoundly weak in the lower extremities. Her position sense is present. Reflexes are diminished. Tone is symmetrical. There is no meningeal sign. There is no carotid bruit. Cardiac examinations appear unremarkable. Hearing and vision looks adequate. She is average built individual. LABORATORY DATA: Her white count is up to 12.4, but she also has a urinary tract infection. CT scan of the head and C-spine [place] [address] CONSULTATION Name: PUNEET COLBYN Emily Room: [address] IN [facility].#: [id number] Admission: 08/31/19 Attend Phys: Piter Verduzco Discharge: Date of : 35 Report #: [id number] show any acute changes. IMPRESSION: It is possible that she is getting more weak with myasthenia gravis, but I need to rule out any spine lesion, so I ordered an MRI of the spine. This patient also has advanced dementia. She keeps getting bradycardic. We had talked to the family in the past. At one time, she was pretty sick, but finally responded some to the medication, but continued with many intractable problem. I will look at the MRI. Nurses tell me she is already on Mestinon. We will decide tomorrow whether to give her gammaglobulin or not. More than 30 minutes of time was spent taking care of this patient today and majority of that time was spent counseling, coordinating and looking at multiple records in this patient. <ELECTRONICALLY SIGNED> By: Alistair Davidson MD 09/03/19 1753 1622 Pdianne Davidson MD /nt
--- NOTE | 2019-09-03 19:00 | NUR ---
PT OUT OF BED THIS AM, ASSIST x1, SAT IN A RECLINER THE WHOLE DAY. VSS. ATE 50-60% OF HER MEALS. WOUND ON THE RT ELBOW DRESSED. PLAN DISCHARGE TO INPT REHAB.
== END 2019-09-03 19:40 | DRG 56 ==
LOC: M.ERS 17:19 → M.2W 18:50 → M.TBA-ER 18:50 → M.2W 20:12
PROVIDERS: Emergency Medicine Emergency Medical Services; Family Medicine; Internal Medicine; ADMIT Internal Medicine; ATTEND Internal Medicine
DX: G70.01 Myasthenia gravis with (acute) exacerbation (principal); E43 Unspecified severe protein-calorie malnutrition; D72.0 Genetic anomalies of leukocytes; E78.5 Hyperlipidemia, unspecified; I10 Essential (primary) hypertension; E03.9 Hypothyroidism, unspecified; M81.0 Age-related osteoporosis without current pathological fracture; Z96.653 Presence of artificial knee joint, bilateral; F03.90 Unspecified dementia, unspecified severity, without behavioral disturbance, psychotic disturbance, mood disturbance, and anxiety; Z90.49 Acquired absence of other specified parts of digestive tract; Z90.710 Acquired absence of both cervix and uterus; Z79.899 Other long term (current) drug therapy; Z79.82 Long term (current) use of aspirin; Z68.21 Body mass index [BMI] 21.0-21.9, adult

== ENCOUNTER 2019-09-03 15:48 | Inpatient (IN) | payer MEDICARE, OTHER ==
[~2019-09-03] VITALS: Ht 162.6 cm; Wt 57.2 kg
[~2019-09-03 15:48] MED LIST changes: +PREDNISONE 20 M20 MG PO
[2019-09-03 21:00] VITALS: BP 145/68
[2019-09-04 04:15] LABS: HEMATOCRIT 31.4 % (37.0-47.0); HEMOGLOBIN 10.5 gm/dL (12.0-15.0); MCH 30.3 pg (26.0-34.0); MCHC 33.4 g/dL (28.0-37.0); MCV 90.6 fL (80.0-100.0); MPV 8.4 fl. (7.2-11.1); RBC 3.47 mil/uL (4.20-5.00); RDW-CV 15.4 % (10.5-14.5); WBC 11.1 thou/uL (4.0-11.0)
[2019-09-04 04:27] LABS: CALCIUM 8.6 mg/dL (8.5-10.1); POTASSIUM 3.9 mmol/L (3.5-5.1)
--- NOTE | 2019-09-04 05:23 | NUR ---
PT ARRIVED ONTO UNIT AT 1999 VIA W/C FROM TELE. ALERT AND ORIENTED X 2. PLEASANT BUT FORGETFUL. IMPULSIVE AT TIMES. MOD ASSIST WITH GAIT BELT AND WALKER. HAS WEAKNESS TO LEGS. LEFT LEG MUCH WEAKER THAN RIGHT. NEEDS MUCH CUEING WITH TRANSFERS. UP TO BSC DUE TO WEAKNESS. DENIED ANY NEED FOR PAIN MEDS. SKIN TEAR AND ABRASION TO RIGHT ELBOW AND RIGHT DAVALOS. PICS TAKEN. REDNESS TO PERIANAL AREA. BARRIER CREAM APPLIED. LEFT VOICE MESSAGE WITH SON ROMARIO ABOUT PT TRANSFER TO REHAB. CALL LIGHT IN REACH AND BED ALARM ON.
[2019-09-04 08:00] VITALS: BP 132/64
--- NOTE | 2019-09-04 14:15 | NUR ---
Nutrition: Pt admitted to rehab. RD recently saw pt and discussed diet. Pt stated she has a good appetite today. Wt is stable, 134#. 2gm Na diet. Alb 2.5, prealb 13. RD provided her with a menu and explained the [place] menus and alternative ordering. Pt had no further questions/concerns today. Wiill follow weekly. Low nutrition risk.
--- NOTE | 2019-09-04 18:34 | NUR ---
AM ASSESSMENT AND VITAL SIGNS COMPLETED DOCUMENTED. PT IS VERY FORGETFUL AND REQUIRES FREQUENT OBSERVATION. BED AND CHAIR ALARMS ON, PT STANDS UP FREQUENTLY. PT HAS BEEN CONTINENT, USES THE CALL LIGHT IN THE BATHROOM. TYLENOL GIVEN X1 FOR C/O BACK PAIN. FALL PRECAUTIONS AND HOURLY ROUNDING CONTINUE.
[2019-09-04 19:30] VITALS: BP 132/64
--- NOTE | 2019-09-05 00:44 | NUR ---
ASSUMED CARE AT 1930. PATIENT RESTING IN RECLINER UNTIL AROUND 2100. UP WITH GAIT BELT, WALKER, ABLE TO RISE WITHOUT ASSIST. CHAIR ALARM AND BED ALARM IN USE. VOIDED PER TOILET BEFORE GOING TO BED. SINCE BEING IN BED SHE HAS SET OFF BED ALARM 5 TIMES WITH C/O TO VOID. BLADDER SCANNED, 450 PVR FIRST TIME. PATIENT RETURNED TO BED AND LATER VOIDED WITH 379 PVR, AND STATED SHE NO LONGER FELT NEED TO VOID. ABOUT 20 MINUTES LATER, SET OFF BED ALARM C/O NEEDING TO VOID. PVR 348. RETURNED TO BED, STATING SHE FEELS BETTER. TAKES PILLS ONE AT A TIME WITH WATER. MEDICATED FOR PAIN AT HS. SEE APR. TURNS SELF. BED ALARM ON. CALL LITE IN REACH. HOURLY ROUNDS CONTINUE.
--- NOTE | 2019-09-05 01:28 | NUR ---
USED CALL LITE APPROPRIATELY. STATED NEED TO HAVE BM. INCONTINENT OF URINE AND STOOL IN BRIEF. UP TO TOILET, VOIDED SOME, HAD MORE BM. SKIN CARE DONE, MOISTURE BARRIER APPLIED. STATES SHE FEELS BETTER. RETURNED TO BED. BED ALARM ON. CALL LITE IN REACH. HOURLY ROUNDS CONTINUE.
--- NOTE | 2019-09-05 05:10 | NUR ---
PATIENT DID NOT SLEEP WELL THIS SHIFT. RARELY USED CALL LITE DESPITE REPEATED EDUCATION ABOUT ITS USE. SET OFF BED ALARM MANY TIMES THROUGH NIGHT. AFTER MIDNIGHT C/O "UPSET STOMACH" AND THAT SHE NEEDED TO HAVE BM. HAS HAD TWO SOFT MOSTLY FORMED BMS AND SHE STATES SHE HAS BEEN VOIDING WITH THOSE. NO LONGER C/O NEEDING TO VOID. RESTING IN BED AT THIS TIME. NO C/O PAIN. TURNS SELF VERY EASILY. NEEDS CUEING WITH WALKER FOR SAFETY. UP WITH ONE, GAIT BELT, WALKER. DOES OWN HYGIENE AFTER TOILETING. BED ALARM ON. CALL LITE IN REACH. HOURLY ROUNDS CONTINUE.
[2019-09-05 08:00] VITALS: BP 153/78
--- NOTE | 2019-09-05 16:19 | NUR ---
ASSUMMED CARE OF PT AT 0730, PT ALERT, CONFUSED, FORGETFUL, PT TRANSFERS WITH ASSIST OF 1, GB WALKER, IMPULSIVE SETS OFF ALARMS AT TIMES, TAKING FOOD AND FLUIDS WELL, AMB TO TOILET TO VOID FREQUENTLY, BLADDER SCANNED AFTER VOID THIS PM AND SCANNED FOR 650CC, ST CATHED FOR 600 CC, BM X 2 THIS SHIFT, CONTINENT OF BOWEL AND BLADDER, BARRIER OINTMENT TO SACRAL AREA, UP IN CHAIR FOR MEALS, PT MOANS WHEN LEGS ARE MOVED AT TIMES, ASKED WHAT IS HURTING HER AND SHE STATES NOTHING HURTS SHE IS JUST STIFF, PARTICIPATED IN ALL THERAPIES, HOURLY ROUNDING COMPLETED, ASSESSMENT COMPLETE, WILL CONTINUE TO MONITOR. SON HERE VISITING, QUESTIONS ANSWERED AND UPDATED.
[2019-09-05 19:48] VITALS: BP 132/72
--- NOTE | 2019-09-05 23:00 | NUR ---
ASSUMED CARE AT 1930. PATIENT RESTING IN RECLINER, DID SPEAK WITH FAMILY PER PHONE. UP WITH SBA, GAIT BELT, AND WALKER. ATTEMPTED TO VOID AT HS PER TOILET, UNABLE TO. ASSISTED TO BED. BLADDER SCANNED FOR 606 ML. MARLENE MEDINA STRAIGHT CATHED PATIENT WITH ASEPTIC TECHNIQUE AND HAD 600 ML CLEAR YELLOW URINE RETURNED. PATIENT KEPT USING CALL LITE, SOMETIMES EVERY TWO MINUTES ASKING TO GO TO THE BATHROOM. REPEATED VERBAL EDUCATION REGARDING EMPTIED BLADDER AFTER STRAIGHT CATH INEFFECTIVE, FINALLY THIS NURSE RESCANNED BLADDER AND SHOWED THE PATIENT THAT THE BLADDER SCANNER SHOWED 0 ML OF URINE, AND SHE ACCEPTED THIS RESPONSE. TAKES PILLS WHOLE ONE AT A TIME. TURNS SELF, IMPULSIVE AND ABLE TO RISE QUICKLY. DENIES PAIN. PATIENT CLOSE TO NURSE STATION. HOURLY ROUNDS CONTINUE. BED ALARM ON. CALL LITE IN REACH.
--- NOTE | 2019-09-06 05:35 | NUR ---
SLEPT MOST OF THE NIGHT, SOUNDLY AND TURNED SELF. NO C/O PAIN. AT 0450, PATIENT USED CALL LITE TO ASK TO USE BATHROOM. PATIENT HAD ALREADY BEEN INCONTINENT OF URINE AND LARGE SOFT BM. SHE ATTEMPTED TO CLEAN HERSELF UP USING KLEENEXES THAT SHE PLACED ON HER BEDSIDE TABLE. THESE REMOVED AND BEDSIDE TABLE DISINFECTED. THIS NURSE DID SKIN CARE, APPLIED MOISTURE BARRIER AND ANOTHER BRIEF. ASSISTED PATIENT TO TOILET, WHERE SHE HAD MORE BM IN THE COLLECTION HAT. UNABLE TO DETERMINE HOW MUCH URINE VOIDED ALL TOGETHER. PATIENT STATED SHE COULD NOT VOID ANY MORE URINE. ASSISTED BACK TO BED. BLADDER SCANNED--193 ML. PATIENT STATED SHE WAS COMFORTABLE NOW. DID HAVE SLOW GAIT TO BR AND BACK, SHE STATES SHE WAS HAVING TROUBLE WALKING. DENIES PAIN. HOURLY ROUNDS CONTINUE. BED ALARM ON. CALL LITE IN REACH.
--- NOTE | 2019-09-06 06:15 | NUR ---
WANTED TO VOID. ALREADY INCONTINENT OF MORE STOOL IN BRIEF. WEAK WHEN TRYING TO STAND, SO USED BSC. SHE VOIDED URINE AND HAD MORE STOOL. SKIN CARE DONE. MOISTURE BARRIER APPLIED.
[2019-09-06 08:00] VITALS: BP 156/85
--- NOTE | 2019-09-06 17:49 | NUR ---
ASSUMMED CARE OF PT AT 0730, PT ALERT, FORGETFUL, CONFUSED, SLIGHTLY IMPULSIVE, SETS OFF ALARMS OCCASIONALLY, TRANSFERS WITH SBA, GB WALKER CUEING, DID GROOMING AT SINK WITH CUES, DRESSED WITH ASSISTANCE, TAKING FOOD AND FLUIDS WELL, UP IN CHAIR FOR MEALS, PT VOIDED SMALL AMOUNT AT 0930, SCANNED FOR 450CC, ST CATHED FOR 500CC AT 0930, DISCUSSED WITH PHYSICIAN AND ORDER OBTAINED TO BLADDER SCAN AND ST CATH EVERY 8 HOURS BETWEEN 0600 AND 2200, PT SCANNED AT 1530 FOR 188 CC, DID NOT VOID AT THAT TIME, AMBULATES TO BATHROOM TO VOID, SMALL MUCOUSY BROWN LOOSE BROWN STOOL X 1 INCONTINENT, MEPILEX CHANGED TO RIGHT ELBOW, DENIES PAIN WHEN ASKED, VA REPOSTIONED, HOURLY ROUNDING COMPLETED, ASSESSMENT COMPLETE, WILL CONTINUE TO MONITOR.
[2019-09-06 19:45] VITALS: BP 115/57
--- NOTE | 2019-09-06 22:30 | NUR ---
ASSUMED CARE AT 1930. PATIENT IN RECLINER WITH CHAIR ALARM. SET OFF ALARM C/O NEEDING TO VOID. ASSISTED TO TOILET, WHERE SHE WAS NOT ABLE TO VOID. BLADDER SCANNED 395, STRAIGHT CATHED WITH ASEPTIC TECHNIQUE 400 ML OF CLEAR ELPIDIO URINE. AFTER CATHETERIZATION, PATIENT C/O NEEDING TO VOID, RESCANNED AND GOT 0 ML. INSTRUCTED PATIENT THAT HER BLADDER WAS JUST EMPTIED. UP WITH SBA, GAIT BELT, WALKER. TAKES PILLS ONE AT A TIME WITH WATER. READ NEWSPAPER, AND SPOKE WITH FAMILY ON PHONE BEFORE HS. HOURLY ROUNDS CONTINUE. BED ALARM ON. CALL LITE IN REACH.
--- NOTE | 2019-09-06 23:31 | NUR ---
WAS CATHETERIZED AT 2200. SEE PREVIOUS NOTE. SINCE THEN, PATIENT HAS BEEN C/O APPROXIMATELY EVERY 10 MINUTES THAT SHE HAS TO VOID. SOMETIMES SHE CALLS ALMOST IMMEDIATELY AFTER THIS NURSE LEAVES ROOM AFTER EXPLAINING CATH/BLADDER SCAN RESULTS. BLADDER SCANNED WITH 0 ML RESULTS MULTIPLE TIMES AFTER CATH. WHEN ASKED, PATIENT DOES NOT REMEMBER BEING STRAIGHT CATHED, AND INSISTS SHE STILL HAS TO VOID DESPITE SHOWING HER THE BLADDER SCANNER RESULTS. THIS NURSE HAD PATIENT USE PERIWIPE TO PERINEUM, AND THIS NURSE LATER APPLIED MOISTURE BARRIER TO AREA. MEEK AREA WNL. GIVEN TYLENOL IN HOPES OF REDUCING ANY PAIN ASSOCIATED WITH THE SENSATION TO VOID. PATIENT PLEASANT ABOUT ALL OF THIS, AND HAS BEEN USING CALL LITE APPROPRIATELY, AND WAITING FOR THE NURSE TO COME IN TO TALK TO HER.
--- NOTE | 2019-09-07 04:47 | NUR ---
PATIENT ASLEEP AT 0010 WITH GENTLE SNORING RESPS. PATIENT NOT AWAKENED BY NURSING, BUT PATIENT WOKE UP WITH FECAL URGENCY AT 0200, AND WAS INCONTNENT OF MOD AMOUNT OF VERY SOFT BUT SEMI FORMED STOOL, SETTING OFF THE ALARM AND ATTEMPTING TO CLIMB OUT OF BED. LINENS AND GOWN CHANGED, BED SANITIZED WHERE SHE SPREAD FECES WITH HER FINGERS, FLOOR SANITIZED WHERE STOOL FELL BEFORE PATIENT GETTING TO BSC. BSC USED DUE TO FECAL URGENCY. SKIN CARE DONE, MOISTURE BARRIER APPLIED. PATIENT DID NOT VOID AT THAT TIME. AT 0400 WAS AWAKENED BY LAB. AFTER THAT PATIENT AGAIN SET OFF BED ALARM, AND WAS ASSISTED BY THIS NURSE TO BSC FOR SMALL AMOUNT OF ANOTHER VERY SOFT SEMI FORMED STOOL PER BSC. SKIN CARE DONE, MOISTURE BARRIER APPLIED, CHUX AND LINENS CHANGED. PATIENT UNABLE TO VOID AT THIS TIME. BLADDER SCANNED AT 0420 FOR 157 ML PVI. PATIENT IS RESTING AT THIS TIME, ATTEMPTING TO RETURN TO SLEEP. HOURLY ROUNDS CONTINUE. BED ALARM ON. CALL LITE IN REACH.
[2019-09-07 05:11] LABS: HEMATOCRIT 31.1 % (37.0-47.0); HEMOGLOBIN 10.4 gm/dL (12.0-15.0); MCH 30.5 pg (26.0-34.0); MCHC 33.5 g/dL (28.0-37.0); MCV 91.2 fL (80.0-100.0); MPV 8.3 fl. (7.2-11.1); RBC 3.41 mil/uL (4.20-5.00); RDW-CV 15.5 % (10.5-14.5); WBC 11.2 thou/uL (4.0-11.0)
[2019-09-07 05:21] LABS: CALCIUM 8.4 mg/dL (8.5-10.1); MAGNESIUM 1.9 mg/dL (1.8-2.4); POTASSIUM 3.3 mmol/L (3.5-5.1)
--- NOTE | 2019-09-07 06:25 | NUR ---
INCONTINENT OF SMALL AMOUNT SEMI FORMED STOOL IN BED. SKIN CARE DONE, MOISTURE BARRIER APPLIED. STATES DID NOT WANT TO GET UP TO VOID, STATING SHE "DOESN'T NEED TO." BLADDER SCANNED, ONLY 215 ML SCANNED. FLUIDS ENCOURAGED. HOURLY ROUNDS CONTINUE. BED ALARM ON. CALL LITE IN REACH.
[2019-09-07 08:00] VITALS: BP 150/89
--- NOTE | 2019-09-07 16:53 | NUR ---
Pt working with therapies today. Team recommending memory care unit at dc. Pt lives at [facility] in [place]. SW to contact family to discuss in more detail and SW to continue to follow to assist with safe dc planning.
--- NOTE | 2019-09-07 18:07 | NUR ---
PT CONTINUES TO BE PLEASANTLY CONFUSED AND VERY IMPULSIVE. PT WAS ABLE TO VOID 4 TIMES TODAY, INCONTINENT OF ONE BM THIS AM. PTPT REQUIRES ALMOST CONSTANT SUPERVISION FOR SAFETY.
[2019-09-07 19:15] VITALS: BP 147/80
--- NOTE | 2019-09-08 06:43 | NUR ---
ASSUMED CARES AT 1920. ALERT AND ORIENTED. X 1-2. CONFUSED AND FORGETFUL. IMPULSIVE. MIN ASSIST WITH GAIT BELT AND WALKER. UP TO BSC OR BR. DENIED ANY NEED FOR PAIN MEDS. PT INCONTINENT OF STOOL. PT CONTINUES TO RETAIN URINE DESPITE VOIDING SMALL AMOUNTS. PVR X 2 OVERNIGHT SHOWED 600-700 CC. BOTH TIMES STRAIGHT CATHED AND HAD >700 CC YELLOW URINE OUTPUT. SLEPT OFF AND ON. CALL LIGHT IN REACH AND BED ALARM ON.
[2019-09-08 08:03] VITALS: BP 145/85
--- NOTE | 2019-09-08 16:44 | NUR ---
AM ASSESSMENT AND VITAL SIGNS COMPLETED DOCUMENTED. PT HAS BEEN VERY CALM TODAY AND HAS BEEN DOING WORD SEARCHES BETWEEN THERAPIES. PT WAS INCONTINENT OF BOWEL EARLY THIS SHIFT, REQUIRED MAX ASSIST WITH CLEANING UP. UA HAS BEEN ORDERED AND WILL BE OBTAINED WITH THE NEXT STRAIGHT CATH IF IT CAN'T BE OBTAINED WHEN SHE VOIDS. FALL PRECAUTIONS AND HOURLY ROUNDING CONTINUE.
[2019-09-08 20:03] VITALS: BP 132/54
[2019-09-08 22:44] LABS: URINE BILIRUBIN NEGATIVE (Negative); URINE BLOOD NEGATIVE (Negative); URINE CLARITY CLEAR; URINE COLOR YELLOW; URINE GLUCOSE-RANDOM NEGATIVE (Negative); URINE KETONES NEGATIVE (Negative); URINE LEUKOCYTES NEGATIVE (Negative); URINE NITRITE NEGATIVE (Negative); URINE PROTEIN NEGATIVE (Negative); URINE SPECIFIC GRAVITY 1.015 (1.005-1.030); URINE UROBILINOGEN 0.2 E.U./dl (0.2-1.0)
--- NOTE | 2019-09-09 06:48 | NUR ---
ASSUMED CARES AT 1920. ALERT AND ORIENTED X 1-2. FORGETFUL. DENIED ANY NEED FOR PAIN MEDS. MIN ASSIST WITH GAIT BELT AND WALKER. UP TO BR. DOES VOID SMALL AMOUNTS. AT 2200, PVR WAS 570 CC AND STRAIGHT CATHED FOR 575 CC CLEAR YELLOW URINE. AT 0600, PVR WAS 537 CC AND STRAIGHT CATHED FOR 600 CC URINE. UA SPECIMEN SENT AND WAS NEGATIVE FOR INFECTION. SLEPT WELL MOST OF THE NIGHT OTHERWISE. CALL LIGHT IN REACH AND BED ALARM ON.
[2019-09-09 07:53] VITALS: BP 151/81
[2019-09-09 11:53] LABS: HEMATOCRIT 36.7 % (37.0-47.0); HEMOGLOBIN 12.2 gm/dL (12.0-15.0); MCHC 33.2 g/dL (28.0-37.0)
[2019-09-09 11:58] LABS: MCH 30.1 pg (26.0-34.0); MCV 90.7 fL (80.0-100.0); MPV 7.9 fl. (7.2-11.1); NUCLEATED RBCS 0 /100WBC; PLATELET COUNT* 473 thou/uL (150-400); RBC 4.04 mil/uL (4.20-5.00); RDW-CV 15.9 % (10.5-14.5); WBC 13.1 thou/uL (4.0-11.0)
[2019-09-09 12:06] LABS: CALCIUM 8.4 mg/dL (8.5-10.1); CREATININE 1.1 mg/dL (0.6-1.3); POTASSIUM 4.1 mmol/L (3.5-5.1); TOTAL BILIRUBIN 0.3 mg/dL (<0.1-1.0); TOTAL PROTEIN 6.3 g/dL (6.4-8.2)
[2019-09-09 12:26] LABS: ABSOLUTE MONOCYTES 1.2 thou/uL (0.0-1.2); ANISOCYTOSIS 1+; METAMYELOCYTES 2 %; MYELOCYTES 1 %
[2019-09-09 12:27] LABS: PLATELET ESTIMATE INCREASED
--- NOTE | 2019-09-09 17:08 | NUR ---
Team conference held today. Pt sleeping, BRANDON called pt son and then met with pt son as he came to visit pt in the hospital. SW reviewed team conference summary and recommendations for possible transition to Memory Care unit at [facility]. Pt son expressed that he wants pt to be able to dc to [facility] and then assess possible move to memory care unit if needed; they want to avoid that transition for as long as possible. Pt son said that pt will have support in her AN apt that she needs. And pt to be able to receive therapies to follow up with pt at [facility] at dc. Pt to dc on Wednesday 09/13. BRANDON left a message for [facility] providing dc plan and will send updates to [facility] in preparation for dc as well. SW to continue to follow.
--- NOTE | 2019-09-09 18:37 | NUR ---
ASSESSMENT COMPLETED DOCUMENTED THIS MORNING. ORDER REC'D TO INSERT WALKER R/T HIGH RESIDUAL URINE AMOUNTS TID. INSERTED AT 1545 AND PATIENT TOLERATED WELL. APPROX. 400CC CLEAR YELLOW URINE RETURNED. TEAM CONFERENCE TODAY WITH THERAPIES REPORTING PATIENT C/O GROIN PAIN. C/O BACK PAIN TO NURSING THIS MORNING. ORDER TO OBTAIN XRAY OF HIP/PELVIS REVEALED PELVIC FRACTURES. CT SCAN OBTAINED LATE THIS AFTERNOON WITH NO RESULTS NOTED YET. ORTHO CONSULT CALLED AT 1835
--- NOTE | 2019-09-09 18:57 | NUR ---
1854 KAIDEN DENNISON CALLED BACK TO CONFIRM ORTHO CONSULT AND WILL SEE PATIENT IN THE MORNING,
[2019-09-09 19:35] VITALS: BP 148/52
--- NOTE | 2019-09-10 04:53 | NUR ---
ASSUMED CARES AT 1920. ALERT AND ORIENTED X 1. FORGETFUL AND CONFUSED. WALKER CATHETER IN PLACE WITH YELLOW URINE. PT DENIED ANY NEED FOR PAIN MEDS. RESTED IN BED ALL NIGHT. CALL LIGHT IN REACH AND BED ALARM ON.
[2019-09-10 08:00] VITALS: BP 160/64
--- NOTE | 2019-09-10 14:36 | NUR ---
SW faxed information as needed to [facility] admissions for SNF in prepation for pt to dc on Saturday. COVID test will need to be given with result prior to pt dc. SW to follow up on how pt will be able to follow up with urology from [facility] as well.
--- NOTE | 2019-09-10 18:19 | NUR ---
AM ASSESSMENT AND VITAL SIGNS COMPLETED DOCUMENTED. 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 FC TO DD WITH CLEAR YELLOW URINE OUTPUT. PT LOOKS FORWARD TO MEALS AND HAS A GOOD APPETITE. FALL PRECAUTIONS AND HOURLY ROUNDING CONTINUE.
[2019-09-10 19:50] VITALS: BP 134/52
--- NOTE | 2019-09-10 23:46 | NUR ---
ASSUMED CARE AT 1930. PATIENT RESTING IN CHAIR UNTIL AROUND 2029. UP WITH GAIT BELT, WALKER. WALKER DRAINS ELPIDIO URINE. PATIENT C/O NEEDING TO VOID DESPITE WALKER. PATIENT EDUCATED THAT SHE HAS WALKER, AND THAT IT MAKES HER FEEL LIKE SHE HAS TO VOID, MULTIPLE TIMES, EVENTUALLY UNDERSTOOD SHE DOES NOT NEED TO GET OOB TO VOID. MIPILEX TO RIGHT ELBOW INTACT. LT DAVALOS WOUND MATT. NO C/O PAIN. HOURLY ROUNDS CONTINUE. BED ALARM ON. CALL LITE IN REACH
--- NOTE | 2019-09-11 05:35 | NUR ---
SLEPT AFTER ABOUT 2200. NO FURTHER C/O NEEDING TO VOID. TURNS SELF. WALKER DRAINS YELLOW URINE. HOURLY ROUNDS CONTINUE. BED ALARM ON. CALL LITE IN REACH
[2019-09-11 07:54] VITALS: BP 147/59
[2019-09-11 09:17] VITALS: BP 126/49
[2019-09-11 09:25] VITALS: BP 117/52
[2019-09-11 09:30] VITALS: BP 101/39
[2019-09-11 09:32] VITALS: BP 135/52
--- NOTE | 2019-09-11 09:43 | NUR ---
CODE BLUE CALLED 0915. UPON CODE TEAM ARRIVAL, PATIENT OPENING EYES. DROWSY AND FORGETFUL, UNAWARE OF WHAT HAPPENED BUT ABLE TO ANSWER QUESTIONS. PALE. SEE DOCUMENTED VITAL SIGNS AND BLOOD SUGAR. JULIUS KELLY, JANIS, & DR. BRUCE AT BEDSIDE. [address] PEÑALOZA READ. SEE NIH INTERVENTION. PLAN TO KEEP ON UNIT.
--- NOTE | 2019-09-11 11:08 | NUR ---
0915 SUMMONED TO SHOWER ROOM BY RYAN HERNANDEZ AND FOUND PATIENT UNRESPONSIVE, PALE, COOL AND DIAPHORETIC...TAN DALEY CALLED AND PATIENT WAS IMMEDIATELY TAKEN BACK TO HER ROOM AND ASSISTED INTO HER BED BY MULTIPLE STAFF MEMBERS. PATIENT STARTING TO AROUSE AND OPEN HER EYES AFTER RETURNING TO BED. CODE TEAM ARRIVED....CONNECTED TO MONITOR. SR WITH OCCASIONAL PVC, BP 90'S/30'S, BGL 94, HR 60'S. 02 APPLIED AT 2LPM/NC WITH SATS AT 97-98%. CONTINUED TO MONITOR AT THE BEDSIDE AND SLOWLY IMPROVED TO THE POINT SHE WAS ABLE TO ANSWER QUESTIONS APPROPRIATELY AND FOLLOW VERBAL COMMANDS ACCURATELY, BP AT 1015 131/61 HR 63, RESTING IN BED, TAKING FLUIDS WELL AND VOICING NO C/O. 1130 SPOKE WITH PATIENT'S SON KATHY AND INFORMED HIM OF EMERGENCY THIS MORNING WITH HIS MOTHER AND THE RESULTS OF PELVIC ST SCAN DONE ON 09/09/19 REVEALING PELVIC FRACTURES. THANKED THIS NURSE AND STATED HE WOULD BE IN LATER THIS AFTERNOON.
--- NOTE | 2019-09-11 17:25 | EKG ---
[place] [address] ELECTROCARDIOGRAM REPORT Name: SPENCER COLBYLYN Emily Room: [address] ADM IN ..#: [id number] Admission: 09/03/19 Attend Phys: Ulisses Lester MD Discharge: Date of : 35 Date of Service: 09/11/19 0925 Report #: [id number] THIS REPORT FOR: //name// [facility] Test Date: 2019-09-11 Test Time: 09:25:32 Pat Name: DESTINY COLBY Department: Room: [address] Gender: F Management Rep: ANNI : 1935 Requested By: Ulisses Lester Order Number: [id number] Reading MD: Martin Schaffer Measurements Intervals [place] Rate: 68 P: 35 OK: 148 QRS: -24 QRSD: 87 T: 5 QT: 411 QTc: 438 Interpretive Statements Sinus rhythm ventricular premature complexe Probable left atrial enlargement Left ventricular hypertrophy Inferior infarct, old Compared to ECG 08/30/2019 17:04:03 no change Electronically Signed On 09-11-2019 17:25:33 CDT by Martin Schaffer [email or web address] <ELECTRONICALLY SIGNED> By: Martin Schaffer MD, [facility] 09/11/19 1725 0925 Martin Schaffer MD, [facility] /EPI
[2019-09-11 17:30] LABS: CREATININE 1.1 mg/dL (0.6-1.3); POTASSIUM 3.3 mmol/L (3.5-5.1)
--- NOTE | 2019-09-11 18:23 | NUR ---
PATIENT HAS CONTINUED TO REST IN BED THE REMAINDER OF THE DAY. BP 108/32 WITH HR IRREGULAR AND 40-60'S. THERAPY PERFORMED IN BED. AFTER THERAPY BP 115/41 HR 68. PATIENT ATE 100% OF HER SUPPER SERVED AND HAS BEEN ENCOURAGED TO DRINK FLUIDS WHICH SHE HAS BEEN COMPLIANT WITH. BP AT 1800 109/63 HR 68 02 SAT ON R/A 94%. SON IN TO VISIT AND HAS BEEN UPDATED ON ALL OF RECENT EVENTS AGAIN. NOTED PREVIOUS HOSPITALIZATIONS FOR PATIENT WITH SYNCOPAL EPISODE IN HER AN WITH SAME S/S THAT OCCURRED TODAY WHEN VENTRICULAR ARRHYTHMIAS WERE TO BLAME.
[2019-09-11 19:30] VITALS: BP 116/37
[2019-09-12 04:30] LABS: ABSOLUTE MONOCYTES 0.7 thou/uL (0.0-1.2); ABSOLUTE NEUTROPHILS 10.3 thou/uL (1.6-8.1); BASOPHILS 0.3 %; EOSINOPHILS 0.3 %; HEMATOCRIT 33.9 % (37.0-47.0); HEMOGLOBIN 11.1 gm/dL (12.0-15.0); LYMPHOCYTES 15.6 %; MCH 29.9 pg (26.0-34.0); MCHC 32.8 g/dL (28.0-37.0); MONOCYTES 5.5 %; MPV 7.6 fl. (7.2-11.1); NUCLEATED RBCS 0 /100WBC; PLATELET COUNT* 420 thou/uL (150-400); POLYS 78.3 %; RBC 3.72 mil/uL (4.20-5.00); RDW-CV 16.4 % (10.5-14.5); WBC 13.1 thou/uL (4.0-11.0)
[2019-09-12 04:34] LABS: ALBUMIN 2.8 g/dL (3.4-5.0); CALCIUM 8.2 mg/dL (8.5-10.1); CREATININE 1.1 mg/dL (0.6-1.3); POTASSIUM 4.1 mmol/L (3.5-5.1); TOTAL BILIRUBIN 0.2 mg/dL (<0.1-1.0); TOTAL PROTEIN 5.6 g/dL (6.4-8.2)
--- NOTE | 2019-09-12 05:30 | NUR ---
pT ORIENTED TO PERSON AND PLACE. FORGETFUL. SOME CONFUSION. PT TOOK MEDS WHOLE. FALL PRECAUTION IN PLACE. CALL LIGHT WITHIN REACH. HOURLY ROUNDINGS MADE. PT SLEPT WELL THIS SHIFT. WALKER IN PLACE. WILL CONTINUE TO MONITOR.
[2019-09-12 08:30] VITALS: BP 133/64
--- NOTE | 2019-09-12 19:47 | NUR ---
ALERT TO SELF. FREQUENTLY FORGETFUL. NO C/O DISCOMFORT OR PAIN. UP WITH 1 ASSIST GAIT BELT AND WALKER. HAS WALKER CATHETER PATENT WITH CLEAR YELLOW URINE. USES CALL LIGHT FREQUENTLY. FALL PRECAUTIONS IN PLACE. BED ALARM AND CHAIR ALARM USED.
[2019-09-12 20:00] VITALS: BP 141/70
--- NOTE | 2019-09-13 04:50 | NUR ---
ASSUMED PT CARE AT 1930. PT ALERT TO SELF, PLEASANTLY CONFUSED AND FREQUENTLY FORGETFUL. NO C/O DISCOMFORT OR PAIN. PT TRANSFERRED FROM CHAIR TO BED WITH ASSIST OF ONE, GAIT BELT AND WALKER. TAKES PILLS WITH WATER WITHOUT DIFFICULTY. PT USED CALL LIGHT AT LEAST EIGHT TIMES TO ASK TO GO TO BATHROOM TO VOID, WAS REMINDED THAT SHE HAS WALKER IN PLACE. WALKER TO DD DRAINING CLEAR LIGHT YELLOW URINE. CALL LIGHT IN REACH. BED ALARM ON FOR SAFETY. HOURLY ROUNDING IN PROGRESS, WILL CONTINUE TO MONITOR.
[2019-09-13 08:00] VITALS: BP 122/62
--- NOTE | 2019-09-13 16:40 | NUR ---
ALERT TO SELF. VERY FORGETFUL WITH SHORT TERM MEMORY. NEEDS FREQUENT REMINDERS. FREQUENTLY FORGETTING TO USE CALL LIGHT. DENIES PAIN WHEN ASKED. HAS WALKER CATHETER PATENT WITH CLEAR YELLOW URINE. CONTINENT OF BOWEL MOVEMENT TODAY. UP WITH STAND BY ASSIST, GAIT BELT AND WALKER. CALL LIGHT WITHIN REACH. FALL PRECAUTIONS IN PLACE. BED ALARM AND CHAIR ALARM USED.
[2019-09-13 20:00] VITALS: BP 127/55
--- NOTE | 2019-09-14 04:54 | NUR ---
ASSUMED CARES AT 1920. ALERT AND ORIENTED BUT FORGETFUL. PLEASANT. DENIED ANY NEED FOR PAIN MEDS. MIN ASSIST WITH GAIT BELT AND WALKER. DID HAVE STOOL INCONTINENCE. WALKER CATHETER DD YELLOW URINE. SLEPT MOST OF THE NIGHT. CALL LIGHT IN REACH AND BED ALARM ON.
[2019-09-14 07:19] VITALS: BP 147/53
[2019-09-14 10:00] VITALS: BP 85/38
[2019-09-14 10:05] VITALS: BP 115/53
[2019-09-14 10:15] VITALS: BP 112/55
[2019-09-14 11:00] VITALS: BP 116/49; BP 120/52; BP 125/50
--- NOTE | 2019-09-14 17:48 | NUR ---
ALERT AND PLEASANT. VERY FORGETFUL, NEEDS FREQUENT REMINDERS AND CUEING. UP WITH STAND BY ASSIST, GAIT BELT AND WALKER. DENIES NEED FOR PAIN MEDICATION. HAD DIZZY SPELL WITH OT BEFORE SHOWER. PATIENT WAS SAT DOWN AND FEET ELEVATED. B/P TAKEN AND LOW. RECHECKED B/P PRIOR TO SHOWER BETTER. ORTHOSTATIC B/P CHECKED. DR NOTIFIED OF DIZZINESS AND V/S. NEW ORDERS NOTED. WALKER CATHETER PATENT WITH CLEAR YELLOW URINE. FALL PRECAUTIONS IN PLACE. BED ALARM AND CHAIR ALARM USED. SOMETIMES FORGETS TO USE CALL LIGHT.
[2019-09-14 19:15] VITALS: BP 108/43
--- NOTE | 2019-09-15 04:41 | NUR ---
ASSUMED PT CARE AT 1930. PT SITTING UP IN RECLINER DOING WORD PUZZLES. ALERT AND ORIENTED, FORGETFUL, PLEASANT. UP TO BED WITH MIN ASSIST, GAIT BELT AND WALKER. DENIES PAIN. NO STOOL THIS SHIFT. WALKER TO DD WITH YELLOW URINE. SLEPT WELL OVERNIGHT. CALL LIGHT IN REACH. BED ALARM ON FOR SAFETY. HOURLY ROUNDING IN PROGRESS, WILL CONTINUE TO MONITOR.
[2019-09-15 08:00] VITALS: BP 152/63
--- NOTE | 2019-09-15 16:32 | NUR ---
AM ASSESSMENT AND VITAL SIGNS COMPLETED DOCUMENTED. PT CONTINUES TO WORK WITH ALL THERAPIES, INTERMITTENTLY C/O OF NAUSEA AND FEELING DIZZY. PT'S BLOOD PRESSURE WAS CHECKED MULTIPLE TIMES, NO ORTHOSTATIC CHANGES. FC TO DD WITH CLEAR YELLOW URINE OUTPUT. PT FEEDS HERSELF AND EATS 75-100% OF ALL MEALS. FALL PRECAUTIONS AND HOURLY ROUNDING CONTINUE.
--- NOTE | 2019-09-15 16:49 | NUR ---
Pt continues to experience dizzy spells according to the team, pt will remain on rehab unit with possibly cardio consult tomorrow according to Dr Lester. BRANDON faxed updates to [facility].
[2019-09-15 20:00] VITALS: BP 133/76
--- NOTE | 2019-09-16 05:23 | NUR ---
ASSUMED PT CARE AT 1930. PT SITTING UP IN RECLINER AT SHIFT CHANGE. ALERT AND ORIENTED BUT FORGETFUL. UP TO BATHROOM WITH ASSIST OF ONE, GAIT BELT AND WALKER. SMALL STOOL X1. DENIES PAIN. WALKER TO DD DRAINING YELLOW URINE. PT CONFUSED IN THE NIGHT CALLING OUT REPEATEDLY TO GET UP TO GO TO BATHROOM TO VOID. PT REMINDED OF WALKER. TYLENOL X1, THEN PT SLEPT REST OF THE NIGHT. USES CALL LIGHT APPROPRIATELY. CALL LIGHT IN REACH. BED ALARM ON FOR SAFETY. HOURLY ROUNDING IN PROGRESS, WILL CONTINUE TO MONITOR.
[2019-09-16 08:00] VITALS: BP 158/55
--- NOTE | 2019-09-16 16:40 | NUR ---
MA ASSESSMENT AND VITAL SIGNS COMPLETED DOCUMENTED. PT HAS NOT HAD ANY DIZZY/ SYNCOPAL EPISODES THE LAST TWO DAYS AFTER BLOOD PRESSURE MEDICATION CHANGES. FC TO DD WITH CLEAR YELLOW URINE OUPUT, PT NEED FREQUENT REMINDING THAT SHE HAS A CATHETER.PT HAS A GOOD APPETITE AND IS ABLE TO FEED HERSELF. FALL PRECAUTIONS AND HOURLY ROUNDING CONTINUE.
--- NOTE | 2019-09-16 17:31 | NUR ---
BRANDON and Dr Lester met with pt and pt dtr in law to review team conference summary and team's recommendation for pt to return to [facility] prior to [facility] as there were concerns pt needed 24/7 supervision and assistance that she wouldn't have as much in AN. Pt and pt dtr in law in agreement with plan and SW contacted [facility] admissions to inform of this recommendation and requested SNF; pt ready to dc now, june dc 09/16 pending [facility] acceptance and bed available to SNF. SW to continue to follow to finalize safe dc plan.
[2019-09-16 19:41] VITALS: BP 125/40
--- NOTE | 2019-09-17 05:58 | NUR ---
PT SLEPT WELL OVERNIGHT, TAKES MEDS WHOLE WITH WATER. DENIES PAIN OR PROBLEMS OVERNIGHT. WALKER DRAINING YELLOW URINE. UP WITH 1, GB AND WALKER. NO LABS THIS MORNING. AO, FORGETFUL BUT PLEASANT THIS SHIFT. HAS NOT TRIED TO GET OOB WITHOUT ASSISTANCE. CM FOLLOWING FOR DISCHARGE PLANNING SNF POSSIBLE TODAY. CALL LITE IN EASY REACH, BED ALARM ON FOR SAFETY OVERNIGHT.
[2019-09-17 08:00] VITALS: BP 143/54
[2019-09-17 09:30] VITALS: BP 143/54
[2019-09-17 09:35] VITALS: BP 164/58
[2019-09-17 09:40] VITALS: BP 134/52
[2019-09-17] MEDS ORDERED: FLOMAX0.4 MG PO (14:56)
[2019-09-17] MEDS ORDERED: MELATONIN5 MG SUBLING (14:58)
[2019-09-17] MEDS ORDERED: MILK OF MA400 MG/5 M PO (14:59)
[2019-09-17] MEDS ORDERED: MYLANTA MAXIMU355 ML PO (15:00)
[2019-09-17] MEDS ORDERED: COLACE100 MG PO (15:02)
[2019-09-17 15:03] VITALS: BP 125/40
--- NOTE | 2019-09-17 15:38 | NUR ---
Pt to dc to [facility] SNF and transportation arranged for 4:30 to 5:00 pm. SW faxed final orders/med list. Pt nurse aware. Pt family aware. Chart copied for continuation of care. [facility] ph [phone]
--- NOTE | 2019-09-17 16:42 | NUR ---
ASSUMMED CARE OF PT AT 0730, PT ALERT, FORGETFUL, CONFUSED, TRANSFERS WITH SBA GB WALKER, UP IN CHAIR ALL SHIFT, WALKER PATENT AND DRAINING ELPIDIO URINE, BM X 1 THIS SHIFT, TAKING FOOD AND FLUIDS WELL, PT DENIES DIZZINESS, DENIES PAIN THIS SHIFT, MEPILEX INTACT TO ELBOW, ORTHOSTATIC DONE WITH DROP IN BP NOTED AND PHYSICIAN INFORMED, PARTICIPATED IN ALL THERAPIES, HOURLY ROUNDING COMPLETED, ASSESSMENT COMPLETE, ORDERS OBTAINED FOR DISCHARGE TO SNF, PT WILL TRANSPORT PER W/C VAN PT AND FAMILY INFORMED, REPORT CALLED, WILL CONTINUE TO MONITOR UNTIL DISCHARGE.
--- NOTE | 2019-09-18 08:30 | NUR ---
THE PROGRESS NOTE DATED 09/18/19 AT 0806 IS TO REFLECT THE PROGRESS NOTE DUE ON 09/11/19.
== END 2019-09-17 17:00 | DRG 56 ==
LOC: M.REH 15:48
PROVIDERS: Internal Medicine; Nurse Practitioner; ADMIT Physical Medicine & Rehabilitation; ATTEND Physical Medicine & Rehabilitation
DX: G70.00 Myasthenia gravis without (acute) exacerbation (principal); E43 Unspecified severe protein-calorie malnutrition; S32.592A Other specified fracture of left pubis, initial encounter for closed fracture; S32.591A Other specified fracture of right pubis, initial encounter for closed fracture; S32.10XA Unspecified fracture of sacrum, initial encounter for closed fracture; S32.059A Unspecified fracture of fifth lumbar vertebra, initial encounter for closed fracture; I10 Essential (primary) hypertension; E03.9 Hypothyroidism, unspecified; F03.90 Unspecified dementia, unspecified severity, without behavioral disturbance, psychotic disturbance, mood disturbance, and anxiety; M81.0 Age-related osteoporosis without current pathological fracture; Z96.653 Presence of artificial knee joint, bilateral; E78.2 Mixed hyperlipidemia; E87.6 Hypokalemia; R39.198 Other difficulties with micturition; Z20.828 Contact with and (suspected) exposure to other viral communicable diseases; Z68.23 Body mass index [BMI] 23.0-23.9, adult; Z90.710 Acquired absence of both cervix and uterus; Z90.49 Acquired absence of other specified parts of digestive tract; Z82.49 Family history of ischemic heart disease and other diseases of the circulatory system; Z79.899 Other long term (current) drug therapy; W18.39XA Other fall on same level, initial encounter; Y93.89 Activity, other specified; Y92.89 Other specified places as the place of occurrence of the external cause; Y99.8 Other external cause status; Z68.21 Body mass index [BMI] 21.0-21.9, adult

== ENCOUNTER 2020-03-14 13:52 | Inpatient (IN) | payer MEDICARE, OTHER ==
[~2020-03-14] VITALS: Ht 162.6 cm; Wt 53.9 kg
[~2020-03-14 13:52] MED LIST changes: +COLACE100 MG PO; +FLOMAX0.4 MG PO; +MELATONIN5 MG SUBLING; +MILK OF MA400 MG/5 M PO; +MYLANTA MAXIMU355 ML PO
[2020-03-14 14:02] VITALS: BP 100/46
[2020-03-14] MEDS ORDERED: FISH OIL 1,001000 M3 PO (14:17)
[2020-03-14] MEDS ORDERED: MILK OF MA400 MG/5 M PO (14:18)
[2020-03-14] MEDS ORDERED: TIMOLOL 0.5%-LAT5 ML LT. EYE (14:20)
[2020-03-14 14:27] LABS: URINE BLOOD TRACE (Negative); URINE CLARITY CLEAR; URINE COLOR YELLOW; URINE GLUCOSE-RANDOM NEGATIVE (Negative); URINE KETONES TRACE (Negative); URINE LEUKOCYTES-REFLEX NEGATIVE (Negative); URINE NITRITE-REFLEX NEGATIVE (Negative); URINE PROTEIN NEGATIVE (Negative); URINE SPECIFIC GRAVITY >= 1.030 (1.005-1.030); URINE UROBILINOGEN 0.2 E.U./dl (0.2-1.0)
[2020-03-14 14:28] LABS: ICTOTEST (BILI CONFIRMATORY) Negative (Negative); URINE BILIRUBIN 2+ (Negative)
[2020-03-14 14:39] LABS: BACTERIA-REFLEX >30 Many /HPF (None Seen); CASTS None Seen /LPF (None Seen); CRYSTALS None Seen /LPF (None Seen); SQUAMOUS 4-10 Moderate /LPF (0-3); URINE RBC 0-2 Rare /HPF (0-2); URINE WBC-REFLEX 0-5 Rare /HPF (0-5)
[2020-03-14 14:43] LABS: ABSOLUTE BASOPHILS 0.1 thou/uL (0.0-0.2); ABSOLUTE EOSINOPHILS 0.1 thou/uL (0.0-0.7); ABSOLUTE LYMPHOCYTES 1.7 thou/uL (0.8-5.3); ABSOLUTE MONOCYTES 0.7 thou/uL (0.0-1.2); ABSOLUTE NEUTROPHILS 6.3 thou/uL (1.6-8.1); EOSINOPHILS 1.6 %; HEMATOCRIT 38.2 % (37.0-47.0); HEMOGLOBIN 12.6 gm/dL (12.0-15.0); LYMPHOCYTES 18.9 %; MCH 29.8 pg (26.0-34.0); MCHC 32.9 g/dL (28.0-37.0); MCV 90.7 fL (80.0-100.0); MONOCYTES 8.2 %; MPV 8.2 fl. (7.2-11.1); NUCLEATED RBCS 0 /100WBC; PLATELET COUNT* 306 thou/uL (150-400); POLYS 70.3 %; RBC 4.21 mil/uL (4.20-5.00); RDW-CV 14.9 % (10.5-14.5)
[2020-03-14 14:54] LABS: PROTIME 10.9 Seconds (9.20-11.50)
[2020-03-14 14:59] LABS: CALCIUM 9.1 mg/dL (8.5-10.1); CREATININE 1.9 mg/dL (0.6-1.3); POTASSIUM 4.2 mmol/L (3.5-5.1)
[2020-03-14 15:03] LABS: ALBUMIN 2.9 g/dL (3.4-5.0); TOTAL BILIRUBIN 0.3 mg/dL (<0.1-1.0); TOTAL PROTEIN 5.8 g/dL (6.4-8.2)
[2020-03-14 16:56] VITALS: BP 108/36
[2020-03-14 17:15] VITALS: BP 131/39
--- NOTE | 2020-03-14 19:13 | NUR ---
PT ADMITTED TO ROOM 221 FROM ED VIA CART ACCOMPANIED BY DIL FOR HX. PT COMES FROM [facility].PT HAD SYNCOPAL EVENT AT FACILITY WHILE TRANSFERRING AND ACTUALLY "PASSED OUT" ASSESSMENT CHARTED.VSS ON RA.PT SHOWING TRIGEMINY AT TIMES ON THE MONITOR,SA WITH PVCS. PT EDUCATED TO ROOM,PLAN OF CARE,FALL PRECAUTIONS,ASSIST WITH AMBULATION.FALL PRECAUTIONS ADDRESSED WITH EXIT ALARM IN PLACE.CLWR,WCTM
[2020-03-15] VITALS (7 sets, daily range): BP systolic 104–142; BP diastolic 41–63
[2020-03-15 05:53] LABS: HEMATOCRIT 36.7 % (37.0-47.0); HEMOGLOBIN 12.1 gm/dL (12.0-15.0); MCH 29.8 pg (26.0-34.0); MCHC 33.1 g/dL (28.0-37.0); MPV 8.8 fl. (7.2-11.1); RBC 4.08 mil/uL (4.20-5.00); RDW-CV 15.3 % (10.5-14.5); WBC 9.7 thou/uL (4.0-11.0)
[2020-03-15 06:09] LABS: ALBUMIN 2.8 g/dL (3.4-5.0); CREATININE 1.4 mg/dL (0.6-1.3); POTASSIUM 3.8 mmol/L (3.5-5.1); TOTAL BILIRUBIN 0.2 mg/dL (<0.1-1.0); TOTAL PROTEIN 5.5 g/dL (6.4-8.2)
--- NOTE | 2020-03-15 08:52 | NUR ---
ASSUMED CARE OF PT THIS AM AROUND 07- SENIOR DATA ANALYST IN PLACE ORDERED, TRACING SR WITH BIG- UPON ASSESSMENT PT NOTED TO BE RESTING IN BED- PT A&O X2 WITH NOTED CONFUSSION- WALKER IN PLACE D/D CLEAR ELPIDIO URINE- AX1 WITH TRANSFERS- LCTA, DYSPNEA NOTED ON EXERTION- VSS, O2 SAT 97% ON RA- ABD SOFT/ROUND/NON-TENDER, BS X4 QUADS- PT REPORTS TO HAVE HAD BM THIS AM-SET UP ASSIST REQUIRED WITH MEALS, FAIR PO INTAKE NOTED- IV NOTED TO LEFT FA INTACT, IVF INFUSSING PRESCRIBED-PT DENIES ANY C/O PAIN/DISCOMFORT- CALL LIGHT AND PESONAL BELONGINGS WITH IN REACH- ALL NEEDS MET AT THIS TIME
--- NOTE | 2020-03-15 13:10 | EKG ---
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: [facility] : 1935 Requested By: Alphonso Shane Order Number: [id number] MD: Martin Schaffer Measurements Intervals [place] Rate: 109 P: 33 KS: 150 QRS: -13 QRSD: 91 T: 48 QT: 323 QTc: 436 Interpretive Statements Sinus rhythm Ventricular bigeminy Probable left atrial enlargement Low voltage, precordial leads Borderline T wave abnormalities Compared to ECG 09/11/2019 09:25:32 Ventricular premature complex(es) now increased in frequency Low QRS voltage now present T-wave abnormality now present Electronically Signed On 03-15-2020 13:09:58 [employer] by Martin Schaffer [email or web address] <ELECTRONICALLY SIGNED> By: Martin Schaffer MD, [facility] 03/15/20 1309 140 140 Martin Schaffer MD, [facility] /EPI
--- NOTE | 2020-03-15 13:40 | NUR ---
CM ATTEMPTED TO SPEAK TO THE PT TO DISCUSS CM ASSESSMENT. PT ALERT, BUT ORIENTED TO SELF. PT UNABLE TO TELL ME WHERE SHE IS OR WHERE SHE LIVES. REVIEW OF PT'S CHART INFORMS THAT THE PT RESIDES AT [facility]. CM SPOKE TO ADRIAN UNDERWATER TRAPPER OF SENIOR CARE AT [facility] AND HE INFORMS THAT THE PT RESIDES ON THE SENIOR CARE UNIT. PT IS NORMALLY A&O X2. PT ABLE TO FEED HERSELF. PT USES A ROLLER WALKER FOR MOBILITY AND ABLE TO TOILET HERSELF. PT ALSO ABLE TO WALK HERSELF TO AND FROM THE DINING ROOM FOR MEALS. ADRIAN INFORMS THAT SENIOR CARE IS ABLE TO ACCEPT PT BACK TO SENIOR CARE AT D/C IF SHE RETURN TO HER BASELINE. OTHERWISE PT WILL NEED TO GO TO [facility]'S SNF UNIT FOR THERAPIES BEFORE RETURNING TO HER SENIOR CARE APARTMENT. PT WILL ALSO NEED A RAPID COVID TEST PRIOR TO D/C. CM WILL REMAIN AVAILABLE TO ASSIST AND FOLLOW NEEDED. [facility] PHONE: [phone] FAX: [phone]
--- NOTE | 2020-03-15 13:57 | 2DMMODE ---
[place] [address] 2 D/M-MODE ECHOCARDIOGRAM Name: DESTINY COLBY Room: [address] IN [facility]#: [id number] Admission: 03/15/20 Attend Phys: Cathi Watson, Discharge: Date of : 35 Date of Service: 03/15/20 1357 Report #: [id number] THIS REPORT FOR: cc: Derrick Boykin MD, Todd A. MD Liston, Michael J. MD [facility] ~ APPROVED REPORT Study performed: 03/15/2020 11:22:05 EXAM: Comprehensive 2D, Doppler, and color-flow Echocardiogram Patient Location: In-Patient Room #: [facility] Status: routine BSA: 1.52 HR: 41 bpm BP: 136/57 mmHg Rhythm: NSR Other Information Study Quality: Adequate Technically limited study due to breast implants. Indications Palpitations Syncope 2D Dimensions IVSd: 7.63 (7-11mm) LVOT Diam: 20.70 (18-24mm) LVDd: 47.92 mm PWd: 8.17 (7-11mm) Ascending Ao: 30.93 (22-36mm) LVDs: 33.07 (25-40mm) Aortic Root: 29.06 mm Volumes Left Atrial Volume (Systole) LA ESV Index: 17.70 mL/m2 Aortic Valve AoV Peak Jasmeet.: 1.25 m/s AO Peak Gr.: 6.30 mmHg LVOT Max P.99 mmHg AO Mean Gr.: 3.52 mmHg LVOT Mean P.95 mmHg LVOT Max V: 0.71 m/[place] [address] 2 D/M-MODE ECHOCARDIOGRAM Name: DESTINY COLBY Room: [address]#: [id number] Admission: 03/15/20 Attend Phys: Cathi Watson, Discharge: Date of : 35 Date of Service: 03/15/20 1357 Report #: [id number] AO V2 VTI: 26.21 cm LVOT Mean V: 0.45 m/s HARPER (VTI): 1.69 cm2 LVOT V1 VTI: 13.13 cm Mitral Valve E/A Ratio: 0.66 MV Decel. Time: 174.04 ms MV E Max Jasmeet.: 0.57 m/s MV PHT: 50.47 ms MVA (PHT): 4.36 cm2 TDI E/Lateral E': 5.70 Lateral E' Jasmeet.: 0.10 m/s Pulmonary Valve PV Peak Jasmeet.: 0.77 m/s PV Peak Gr.: 2.35 mmHg Tricuspid Valve RAP Estimate: 5.00 mmHg TR Peak Gr.: 21.30 mmHg RVSP: 26.00 mmHg PA Pressure: 26.00 mmHg Left Ventricle The left ventricle is normal size. There is normal LV segmental wall motion. There is normal left ventricular wall thickness. Left ventricular systolic function is normal. LVEF is 55-60%. Grade I - abnormal relaxation pattern. Right Ventricle The right ventricle is normal size. The right ventricular systolic function is normal. Atria The left atrium size is normal. The right atrium size is normal. Aortic Valve Mild aortic valve sclerosis. No aortic regurgitation is present. There is no aortic valvular stenosis. Mitral Valve The mitral valve is normal in structure. Mild mitral regurgitation. No evidence of mitral valve stenosis. Tricuspid Valve The tricuspid valve is normal in structure[place] [address] 2 D/M-MODE ECHOCARDIOGRAM Name: PUNEET COLBYN Emily Room: [address]#: [id number] Admission: 03/15/20 Attend Phys: Cathi Watson, Discharge: Date of : 35 Date of Service: 03/15/20 1357 Report #: [id number] regurgitation. No pulmonary hypertension. Pulmonic Valve The pulmonary valve is normal in structure. There is no pulmonic valvular regurgitation. Great Vessels The aortic root is normal in size. IVC is normal in size and collapses >50% with inspiration. Pericardium There is no pericardial effusion. <Conclusion> The left ventricle is normal size. There is normal left ventricular wall thickness. Left ventricular systolic function is normal. LVEF is 55-60%. Grade I - abnormal relaxation pattern. There is normal LV segmental wall motion. Mild mitral regurgitation. Mild tricuspid regurgitation. No pulmonary hypertension. IVC is normal in size and collapses >50% with inspiration. <ELECTRONICALLY SIGNED> By: Merrick Escobedo MD, FACC 03/15/20 1357 1357 1357 Merrick Escobedo MD, FACC /INF
[2020-03-16 04:11] VITALS: BP 129/66
--- NOTE | 2020-03-16 06:57 | NUR ---
ASSUMED PT CARE AT 1930. PT IS A/O X1-2. PT HAS DEMENTIA AND HAD SOME CONFUSTION LAST NIGHT. PT IS ON THE TELE MONITOR AND IS SR WITH PVC'S AND BIGEMINY. PT IS ON RA. O2 SAT 95%. PT WAS RESTLESS DURING THE NIGHT WANTING TO "GO HOME." PT HAS A RFA IV NS AT 100ML/HR. FALL PRECAUTIONS IN PLACE. CALL LIGHT WITHIN REACH. PT IS CURRENTLY RESTING.
[2020-03-16 08:12] VITALS: BP 120/48
--- NOTE | 2020-03-16 08:41 | CON ---
[address] [address] CONSULTATION Name: DESTINY COLBY Room: [address] IN .R.#: [id number] Admission: 03/15/20 Attend Phys: Cathi Watson MD Discharge: Date of : 35 Report #: [id number] THIS REPORT FOR: cc: Derrick Boykin MD, Todd A. MD ~ Merrick Escobedo MD [facility] DATE OF SERVICE: 03/15/2020 CARDIOLOGY CONSULT INDICATION: Ventricular ectopy. HISTORY OF PRESENT ILLNESS: The patient is a very pleasant 84-year-old white female who was admitted from her assisted care facility after having a fall. The patient denies loss of consciousness. She is noted on telemetry monitoring to have frequent unifocal premature ventricular contractions, couplets and episodes of bigeminy. She is not having any symptoms of palpitations. She denies chest pain or shortness of breath. She was evaluated for similar complaints/issues 15 months ago. At that time, evaluation was fairly unremarkable. Echocardiogram today shows normal LV systolic function, grade 1 diastolic dysfunction and no significant valvular heart disease. PAST MEDICAL HISTORY: 1. Hypertension. 2. Hypothyroidism. 3. Dementia. 4. Myasthenia gravis. PAST SURGICAL HISTORY: 1. Tonsillectomy. 2. Hysterectomy. 3. Appendectomy. 4. Bladder repair. 5. Right total knee replacement. 6. Left total knee replacement. FAMILY HISTORY: Noncontributory. SOCIAL HISTORY: The patient is a lifelong nonsmoker. She does not drink alcohol. ALLERGIES: None documented. [facility] [address] [place] [address] CONSULTATION Name: DESTINY COLBY Room: [address] IN [facility]#: [id number] Admission: 03/15/20 Attend Phys: Cathi Watson MD Discharge: Date of : 35 Report #: [id number] HOME MEDICATIONS: Tylenol p.r.n., aspirin 81 mg daily, Combigan eyedrops b.i.d., vitamin D3 daily, Colace 100 mg b.i.d., folate 0.4 mg daily, Xalatan eyedrops nightly, Synthroid 75 mcg daily, Mylanta 15-30 mL q.4 hours p.r.n., milk of magnesia p.r.n., melatonin 5 mg at bedtime, Namenda 5 mg at bedtime, metoprolol succinate 25 mg b.i.d., multivitamin 1 tablet daily, Benicar 40 mg daily, fish oil 1000 mg b.i.d., Mestinon 30 mg q.4 hours, Flomax 0.4 mg daily, timolol eye drops left eye b.i.d., PreserVision Soft Gels 1 tablet daily and Super B Complex 1 tablet daily. REVIEW OF SYSTEMS: A 14-point review of systems unremarkable. PHYSICAL EXAMINATION: VITAL SIGNS: Stable. Blood pressure 104/41 and pulse 84. GENERAL: This is an elderly female, in no distress. Mood and affect appropriate. HEENT: The patient is wearing glasses. Extraocular muscles are intact. Mucous membranes are moist. NECK: Shows no jugular venous distention. There are no carotid bruits. CHEST: Reveals diminished breath sounds without wheezes or rales. CARDIAC: Reveals an irregular rhythm without gallop or murmur. ABDOMEN: Reveals normal bowel sounds. The abdomen is soft and nontender. EXTREMITIES: Shows no edema. Peripheral pulses palpable. SKIN: Dry. LABORATORY DATA: A 12-lead EKG shows a sinus rhythm with frequent unifocal premature ventricular contractions. Telemetry monitoring shows frequent ventricular ectopy. IMPRESSION AND RECOMMENDATIONS: 1. Ventricular ectopy, asymptomatic. No indication for significant intervention at this time. Electrolytes are stable. We will check TSH to rule out hyperthyroidism, all I doubt this is the case. I have made some minor adjustments to her antihypertensive regimen in an effort to somewhat suppressed her PVCs. I would not make an effort for aggressive control. 2. Hypertension, adequately controlled on current regimen. 3. Hypothyroidism, on replacement. Checking a TSH. 4. Chronic diastolic dysfunction, presently compensated and stable. <ELECTRONICALLY SIGNED> By: Merrick Escobedo MD, FACC 03/16/20 0841 1455 1929Micjim Escobedo MD, FACC /nt
--- NOTE | 2020-03-16 11:04 | NUR ---
CM INFORMED DURING PRIME ROUNDING OF THE PLAN OF CARE FOR THE PT. PLAN FOR PT TO HAVE PT/OT EVALS TO ASSIST WITH D/C PLANNING. PT MAY HAVE TO D/C TO SNF SHE MAY NOT BE ABLE TO RETURN TO HER LONGTERM IF SHE IS NOT AT HER BASELINE MOBILITY STATUS AT D/C. PT IS FROM [facility] AND THEY ARE ABLE TO ACCEPT THE PT FOR SNF AT D/C IF NEEDED. CM WILL REMAIN AVAILABLE TO ASSIST AND FOLLOW NEEDED.
[2020-03-16 11:50] LABS: CALCIUM 8.4 mg/dL (8.5-10.1); POTASSIUM 3.8 mmol/L (3.5-5.1)
[2020-03-16 12:12] VITALS: BP 128/75
--- NOTE | 2020-03-16 12:55 | NUR ---
Pt medically stable to dc to SNF tomorrow. CM faxed referral to [facility], they are able to accept Pt tomorrow. CM updated Pt's DIL and nurse. CM to arrange dc tomorrow.
--- NOTE | 2020-03-16 13:26 | NUR ---
ASSUMED CARE OF PATIENT THIS AM AT 0730. PATIENT IS ALERT, CONFUSED AND DISORIENTED THIS AM. TELE SHOWS STACHY WITH PVCS. DR IN TO ROUND AND ORDERS WRITTEN. PATIENT ASSISTED UP TO THE CHAIR WITH 1 ASSIST. SHE DENIES PAIN AND DISCOMFORT. NO FALLS OR INJURY. BED AND CHAIR ALARM ON.
[2020-03-16 20:20] VITALS: BP 131/66
[2020-03-17] VITALS: BP 126/57
[2020-03-17 04:00] VITALS: BP 134/62
--- NOTE | 2020-03-17 08:38 | NUR ---
PATIENT HAS SLEPT MOST OF THE NIGHT. VSS ON RA. IV IN RIGHT FOREARM-SL. MEDICATIONS GIVEN ORDERED AND CHARTED. WALKER TO DEPENDENT DRAINAGE WITH YELLOW URINE OUTPUT. FALL PRECAUTIONS IN PLACE AND HOURLY ROUNDS MADE. WILL CONTINUE WITH PLAN OF CARE AND NURSING TO MONITOR.
[2020-03-17 09:00] VITALS: BP 146/50
[2020-03-17] MEDS ORDERED: MIRTAZAPINE15 M2 PO (11:50)
[2020-03-17] MEDS ORDERED: CEFDINIR300 MG PO (11:53)
[2020-03-17 12:10] VITALS: BP 115/58
--- NOTE | 2020-03-17 14:55 | NUR ---
CM INFORMED DURING PRIME ROUNDING OF THE PLAN OF CARE FOR THE PT. PLAN FOR THE PT TO D/C BACK TO [facility] TODAY SNF. CM ATTEMPTED TO CONTACT PT'S SON TO INFORM OF PT'S D/C AND LEFT A MESSAGE TO RETURN CALL TO RN WITH ANY QUESTIONS OR CONCERNS. CM FAXED PT'S D/C ORDERS TO [facility]. [facility] ADMISSIONS TO ARRANGE TRANSPORT FOR PT. CM INFORMED RN OF WHERE TO CALL REPORT. CM WILL REMAIN AVAILABLE TO ASSIST AND FOLLOW NEEDED. [facility] PHONE: [phone] FAX: [phone]
[2020-03-17 17:27] VITALS: BP 147/56
--- NOTE | 2020-03-17 20:50 | NUR ---
I ASSUMED CARE OF THE PATIENT AT 0700. SHE IS ALERT TO SELF AND DROWSY. BED IS IN THE LOW LOCKED POSITION AND CALL LIGHT IS IN REACH. HOURLY ROUNDING IS COMPLETED AND PATIENT NEEDS ARE MET. PAIN IS DENIED. SHE HAS A VERY POOR APPETITE, BUT WILL DRINK STRAWBERRY ENSURE IF OFFERED FREQUENTLY. 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 RAPID COVID WAS COMPLETED PRIOR TO TRANSFER/DISCHARGE. SHE WAS INCONT TODAY OF STOOL. WALKER WAS LEFT IN PLACE AT THE REQUEST OF TRANSFERING FACILITY. PATIENT TRANSFERED AT 1620 AND REPORT WAS CALLED TO ANTOINE.
== END 2020-03-17 16:20 | DRG 682 ==
LOC: M.ERS 13:52 → M.TBA-ER 15:44 → M.2W 17:08
PROVIDERS: Emergency Medicine Emergency Medical Services; Internal Medicine; ADMIT Internal Medicine; ATTEND Internal Medicine
DX: N17.0 Acute kidney failure with tubular necrosis (principal); G93.41 Metabolic encephalopathy; N39.0 Urinary tract infection, site not specified; Z20.822 Contact with and (suspected) exposure to COVID-19; E03.9 Hypothyroidism, unspecified; I10 Essential (primary) hypertension; M81.0 Age-related osteoporosis without current pathological fracture; E78.5 Hyperlipidemia, unspecified; Z96.653 Presence of artificial knee joint, bilateral; F03.90 Unspecified dementia, unspecified severity, without behavioral disturbance, psychotic disturbance, mood disturbance, and anxiety; I49.3 Ventricular premature depolarization; B96.89 Other specified bacterial agents as the cause of diseases classified elsewhere; Z90.710 Acquired absence of both cervix and uterus; Z90.49 Acquired absence of other specified parts of digestive tract